=== PATIENT | female | born 1930 | race Caucasian/White ===

== ENCOUNTER → 2017-04-06 | Outpatient (CLI) | payer MEDICARE, OTHER ==
--- NOTE | 2017-04-06 15:26 | REP ---
Chest two views HISTORY: Cough Comparison: 04/14/2015 The lungs are clear. The heart is normal in size. The pulmonary vasculature is normal in appearance. The bony structure is intact. The patient is status post sternotomy. IMPRESSION: No acute disease. Signed by Raheem Hamilton MD 04/06/2017 03:17 P
== END ==
LOC: M WUC 15:00
PROVIDERS: ATTEND Internal Medicine
DX: R50.9 Fever, unspecified (principal); R05 Cough; R06.2 Wheezing

== ENCOUNTER → 2017-05-04 | Outpatient (CLI) | payer MEDICARE, OTHER ==
--- NOTE | 2017-05-04 12:39 | REP ---
PA and lateral chest: Comparison is 04/06/2017. The lung larson are clear. The cardiac size is normal The grace, mediastinum, and bony thorax are unremarkable. There are sternotomy wires and surgical clips in the left axilla. These are unchanged. Impression: Negative PA and lateral chest. No interval change. Signed by Duc Grant MD 05/04/2017 12:30 P
== END ==
LOC: M WUC 11:31
PROVIDERS: ATTEND Internal Medicine
DX: R05 Cough (principal)

== ENCOUNTER → 2017-05-27 | Outpatient (REF) | payer MEDICARE, OTHER | LOC: M LAB REF 13:17 | PROVIDERS: ATTEND Nurse Practitioner Adult Health | DX: R05 Cough (principal); R06.02 Shortness of breath ==

== ENCOUNTER 2017-06-03 06:09 | Emergency (ER) | payer MEDICARE, OTHER ==
[~2017-06-03] VITALS: Ht 157.5 cm; Wt 77.3 kg
[2017-06-03] MEDS ORDERED: ATOR1TAB21 PO (06:20)
[2017-06-03] MEDS ORDERED: VALS1TAB46 PO (06:20)
[2017-06-03] MEDS ORDERED: FURO40TA2 PO (06:20)
[2017-06-03] MEDS ORDERED: OMEP20CA3 PO (06:20)
[2017-06-03] MEDS ORDERED: MULT1TAB18 PO (06:20)
[2017-06-03] MEDS ORDERED: POTA10CA PO (06:20)
[2017-06-03 08:16] VITALS: BP 203/83
--- NOTE | 2017-06-03 08:19 | REP ---
Clinical: Cough . Comparison: 05/04/2017 . Technique: PA and lateral. Findings: The mediastinum and cardiac silhouette are normal. 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 The lung larson are clear and without acute consolidation, effusion, or pneumothorax. The skeletal structures are intact and normal. Impression: 1. No acute cardiopulmonary process. Signed by Guero Gr MD 06/03/2017 08:10 A
== END 2017-06-03 08:21 | disposition home or self-care (01) ==
LOC: M ED 06:09
DX: R60.0 Localized edema (principal); G56.02 Carpal tunnel syndrome, left upper limb; I10 Essential (primary) hypertension; K21.9 Gastro-esophageal reflux disease without esophagitis; Z85.3 Personal history of malignant neoplasm of breast; Z79.899 Other long term (current) drug therapy; Z88.0 Allergy status to penicillin; Z88.2 Allergy status to sulfonamides; Z88.5 Allergy status to narcotic agent; Z88.8 Allergy status to other drugs, medicaments and biological substances

== ENCOUNTER → 2017-11-02 | Outpatient (REF) | payer MEDICARE, OTHER ==
[2017-11-03 18:51] LABS: URIC ACID 6.7 MG/DL (2.6-6.0)
== END ==
LOC: M LAB REF 17:40
DX: M10.9 Gout, unspecified (principal)
CPT/HCPCS: 84550

== ENCOUNTER 2018-03-11 12:17 | Emergency (ER) | payer MEDICARE, OTHER ==
[2018-03-11 13:42] LABS: BASO % 0.3 % (0.0-1.0); EOS # 0.2 10^3/uL (0.0-0.50); EOS % 1.8 % (0.0-3.0); HEMATOCRIT 37.4 % (36.0-47.0); HEMOGLOBIN 12.8 g/dl (12.0-15.5); IMMATURE GRANULOCYTE % 0.3 % (0-3.0); LYMPH # 1.8 10^3/uL (1.5-4.5); LYMPH % 21.1 % (24.0-44.0); MEAN CORPUSCULAR HEMOGLOBIN 30.3 pg (27.0-33.0); MEAN CORPUSCULAR HGB CONC 34.2 g/dl (32.0-36.5); MEAN CORPUSCULAR VOLUME 88.4 fl (80.0-96.0); MONO # 0.7 10^3/uL (0.0-0.8); MONO % 8.4 % (0.0-5.0); NEUTROPHILS # 5.9 10^3/uL (1.8-7.7); NEUTROPHILS % 68.1 % (36.0-66.0); PLATELET COUNT, AUTOMATED 270 10^3/uL (150-450); RED BLOOD COUNT 4.23 10^6/uL (4.00-5.40); RED CELL DISTRIBUTION WIDTH 14.9 % (11.5-14.5); WHITE BLOOD COUNT 8.7 10^3/uL (4.0-10.0)
[2018-03-11 13:45] LABS: VENOUS HCO3 24.9 MEQ/L (23.0-27.0); VENOUS O2 SATURATION 93.5 % (60.0-80.0); VENOUS PARTIAL PRESSURE CO2 41.6 mmHg (38.0-50.0); VENOUS PARTIAL PRESSURE O2 67.2 mmHg (30.0-50.0); VENOUS PH 7.395 UNITS (7.330-7.430); VENOUS STANDARD HCO3 24.4 MEQ/L; VENOUS TOTAL CO2 26.2 MEQ/L (24.0-28.0)
[2018-03-11] MEDS: FUROSEMIDE 40 MG/4 ML VIAL (J1940) IV (13:46)
[2018-03-11 13:54] LABS: INR 0.93; PROTHROMBIN TIME 12.6 SECONDS (12.1-14.4)
[2018-03-11 14:14] LABS: ALBUMIN 3.6 GM/DL (3.2-5.2); ALKALINE PHOSPHATASE 125 U/L (45-117); ALT/SGPT 16 U/L (12-78); ANION GAP 9 MEQ/L (8-16); AST/SGOT 16 U/L (7-37); BILIRUBIN,DIRECT 0.1 MG/DL (0.0-0.2); BILIRUBIN,TOTAL 0.5 MG/DL (0.2-1.0); BLOOD UREA NITROGEN 34 MG/DL (7-18); CALCIUM LEVEL 8.9 MG/DL (8.8-10.2); CARBON DIOXIDE LEVEL 25 MEQ/L (21-32); CHLORIDE LEVEL 104 MEQ/L (98-107); CK-MB VALUE MASS 1.7 NG/ML (<3.6); CPK CREATINE PHOSPHOKINASE 74 U/L (26-192); CREATININE FOR GFR 1.39 MG/DL (0.55-1.30); GLOMERULAR FILTRATION RATE 38.3 (>32); GLUCOSE, FASTING 115 MG/DL (70-100); MB/CK RELATIVE INDEX 2.29 (< OR =4); NT-PRO BNP 370 PG/ML (<450); POTASSIUM SERUM 4.4 MEQ/L (3.5-5.1); SODIUM LEVEL 138 MEQ/L (136-145); TOTAL PROTEIN 7.6 GM/DL (6.4-8.2); TROPONIN I < 0.02 NG/ML (< 0.10)
[2018-03-11] MEDS ORDERED: ISOVUE-370 76% 100ML VIAL (Q9967) As Ordered (14:29)
== END 2018-03-11 17:45 | disposition home or self-care (01) ==
LOC: M ED 12:17
DX: J01.90 Acute sinusitis, unspecified (principal); R60.0 Localized edema; I10 Essential (primary) hypertension; I25.10 Atherosclerotic heart disease of native coronary artery without angina pectoris; Z95.1 Presence of aortocoronary bypass graft; Z82.49 Family history of ischemic heart disease and other diseases of the circulatory system; Z88.0 Allergy status to penicillin; Z88.2 Allergy status to sulfonamides; Z88.5 Allergy status to narcotic agent; Z88.8 Allergy status to other drugs, medicaments and biological substances; Z87.891 Personal history of nicotine dependence
CPT/HCPCS: Q9967

== ENCOUNTER → 2018-03-26 | Outpatient (REF) | payer MEDICARE, OTHER | LOC: M LAB REF 12:54 | DX: R05 Cough (principal) | CPT/HCPCS: 87633 ==

== ENCOUNTER → 2018-05-12 | Outpatient (CLI) | payer MEDICARE, OTHER ==
[2018-05-12 11:11] LABS: BASO % 0.4 % (0.0-1.0); EOS # 0.1 10^3/uL (0.0-0.50); EOS % 1.3 % (0.0-3.0); HEMOGLOBIN 11.9 g/dl (12.0-15.5); IMMATURE GRANULOCYTE % 0.2 % (0-3.0); LYMPH # 1.6 10^3/uL (1.5-4.5); LYMPH % 17.6 % (24.0-44.0); MEAN CORPUSCULAR HGB CONC 32.2 g/dl (32.0-36.5); MEAN CORPUSCULAR VOLUME 93.2 fl (80.0-96.0); MONO # 0.7 10^3/uL (0.0-0.8); NEUTROPHILS # 6.7 10^3/uL (1.8-7.7); NEUTROPHILS % 72.5 % (36.0-66.0); PLATELET COUNT, AUTOMATED 281 10^3/uL (150-450); RED BLOOD COUNT 3.97 10^6/uL (4.00-5.40); RED CELL DISTRIBUTION WIDTH 14.1 % (11.5-14.5); WHITE BLOOD COUNT 9.3 10^3/uL (4.0-10.0)
[2018-05-12 11:21] LABS: ALBUMIN 3.8 GM/DL (3.2-5.2); ALBUMIN/GLOBULIN RATIO 1.12 (1.00-1.93); ALKALINE PHOSPHATASE 143 U/L (45-117); ALT/SGPT 18 U/L (12-78); ANION GAP 7 MEQ/L (8-16); AST/SGOT 13 U/L (7-37); BILIRUBIN,TOTAL 0.3 MG/DL (0.2-1.0); BLOOD UREA NITROGEN 28 MG/DL (7-18); CALCIUM LEVEL 9.3 MG/DL (8.8-10.2); CARBON DIOXIDE LEVEL 28 MEQ/L (21-32); CHLORIDE LEVEL 105 MEQ/L (98-107); CREATININE FOR GFR 1.22 MG/DL (0.55-1.30); GLOMERULAR FILTRATION RATE 44.5 (>32); GLUCOSE, FASTING 100 MG/DL (70-100); MAGNESIUM LEVEL 2.1 MG/DL (1.8-2.4); NT-PRO BNP 492 PG/ML (<450); PHOSPHORUS LEVEL 3.2 MG/DL (2.5-4.9); SODIUM LEVEL 140 MEQ/L (136-145); TOTAL PROTEIN 7.2 GM/DL (6.4-8.2)
== END ==
LOC: M RAD 10:21
DX: J44.9 Chronic obstructive pulmonary disease, unspecified (principal); R60.0 Localized edema; M25.462 Effusion, left knee; M71.22 Synovial cyst of popliteal space [Baker], left knee
CPT/HCPCS: 93970

== ENCOUNTER → 2018-05-14 | Outpatient (REF) | payer MEDICARE, OTHER ==
[2018-05-14 16:51] LABS: URIC ACID 6.6 MG/DL (2.6-6.0)
== END ==
LOC: M LAB REF 16:32
DX: E79.0 Hyperuricemia without signs of inflammatory arthritis and tophaceous disease (principal)
CPT/HCPCS: 84550

== ENCOUNTER → 2018-05-28 | Outpatient (CLI) | payer MEDICARE, OTHER | LOC: M CARPUL 09:34 | DX: R60.0 Localized edema (principal) | CPT/HCPCS: 93306 ==

== ENCOUNTER → 2018-07-28 | Outpatient (REF) | payer MEDICARE, OTHER ==
[~2018-07-28] MED LIST: ATOR1TAB21 PO; CETI10TA PO; FURO40TA2 PO; KLOR10TA76 PO; MULT1TAB18 PO; OMEP20CA3 PO; VALS1TAB46 PO; ZITHTAB PO
[2018-07-28 19:43] LABS: HEMATOCRIT 31.3 % (36.0-47.0); HEMOGLOBIN 10.5 g/dl (12.0-15.5); MEAN CORPUSCULAR HEMOGLOBIN 31.1 pg (27.0-33.0); MEAN CORPUSCULAR HGB CONC 33.5 g/dl (32.0-36.5); MEAN CORPUSCULAR VOLUME 92.6 fl (80.0-96.0); PLATELET COUNT, AUTOMATED 315 10^3/uL (150-450); RED BLOOD COUNT 3.38 10^6/uL (4.00-5.40); WHITE BLOOD COUNT 7.5 10^3/uL (4.0-10.0)
[2018-07-28 19:47] LABS: CALCIUM LEVEL 8.1 MG/DL (8.8-10.2); CREATININE FOR GFR 1.5 MG/DL (0.55-1.30); GLOMERULAR FILTRATION RATE 35.1 (>32); POTASSIUM SERUM 4.3 MEQ/L (3.5-5.1)
== END ==
LOC: M LABDRWAD 19:15
PROVIDERS: ATTEND Internal Medicine Cardiovascular Disease
DX: Z00.00 Encounter for general adult medical examination without abnormal findings (principal)

== ENCOUNTER 2018-09-08 15:09 | Outpatient (RCR) | payer MEDICARE, OTHER ==
--- NOTE | 2018-08-18 14:03 | CARECAPL ---
Assessment Account #s: Initial Assessment General Diagnoses: Stent Date of event: Aug 02, 2018 Allergies: Coded Allergies: Prednisone (Verified Allergy, Severe, ANXIETY/ITCHING, 06/03/17) Penicillins (Verified Allergy, Intermediate, RASH/FEVER, 10/19/12) Penicillins Cross Reactors (Verified Allergy, Intermediate, RASH/FEVER, 10/19/12) Sulfa Drugs (Verified Allergy, Intermediate, RASH/FEVER/ITCHING, 10/19/12) Sulfa Drugs Cross Reactors (Verified Allergy, Intermediate, RASH/FEVER/ITCHING, 10/19/12) Cortisone (Verified Allergy, Unknown, 10/19/12) Ibuprofen (Verified Allergy, Unknown, 10/19/12) Oxycodone (Verified Allergy, Unknown, 10/19/12) Date Entered Program: Aug 18, 2018 Risk strat for cardiac event: Low Exercise Date: Aug 18, 2018 Assessment: Initial Assessment Exercise Prescription Plan educate and increase endurance through exercise Modalities initiated: Treadmill (mets 1.77 RPE 5), Cardio-Strider (will add), Nustep (mets 2.4 RPE 3), Arm Aerometer (mets 2.4 RPE 2), Dumbells (will add), Recumbent Bike (will add) Frequency: 3 Duration (Minutes) 30-60 minutes total exercise a day. 15-20 work intervals in minutes. prn rest intervals in minutes. Functional Capacity Goal Sustained Metabolic Equivalent of a task (MET) goal of 3.0-3.75 for 15-20 minutes. Intensity: 3-Moderate Progression (METS) Increase by: 0.5 METS every: 3-5 sessions Angina with ex: No Target Heart Rate rest + 35-40 per beta manju therapy Resistance Training: Yes Weight (pounds): 1 Reps: 8-12 Hypertension: Yes Hypertension controlled with: Medication Resting 133/60 Peak Exercise BP 180/80 Meds lopressor Medications Scheduled (Multi Vitamin), 1 TAB PO DAILY, (Reported) Albuterol Sulfate (Proventil Hfa), 2 PUFF INH Q4H, (Reported) Apixaban Base (Eliquis), 2.5 MG PO BID, (Reported) Atorvastatin Calcium (Atorvastatin Calcium), 20 MG PO DAILY, (Reported) Budesonide/Formoterol (Symbicort 160-4.5 Mcg/Act), 2 PUFF INH BID, (Reported) Clopidogrel Bisulfate (Plavix), 75 MG PO DAILY, (Reported) Metoprolol Tartrate (Metoprolol Tartrate), 25 MG PO BID, (Reported) Nitroglycerin (Nitro-Dur), 0.4 MG TD DAILY, (Reported) Omeprazole (Omeprazole), 20 MG PO DAILY, (Reported) Potassium Chloride (Klor-Con M10), 10 MEQ PO DAILY, (Reported) Tiotropium [place] Monohydrate (Spiriva Handihaler), 1 INHALATION INH DAILY, (Reported) Torsemide (Torsemide), 20 MG PO DAILY, (Reported) Valsartan (Valsartan), 80 MG PO DAILY, (Reported) Miscellaneous Medications (Tab-A-Rl), 1 TAB PO, (Reported) Discontinued Medications Albuterol Sulfate (Albuterol Sulfate), 1 VIAL NEB Q4HP PRN for wheezing, (Reported) Discontinued Reason: Pt states not taking Azithromycin (Zithromax Z-Mian), 250 MG PO ASDIRECTED Discontinued Reason: Pt states not taking Cetirizine HCl (Cetirizine HCl), 1 TAB PO DAILY Discontinued Reason: Pt states not taking Furosemide (Furosemide), 40 MG PO DAILY, (Reported) Discontinued Reason: Pt states not taking Intervention Education: Self pulse, Ex safety, S/S to report, Low NA diet, BP medication, RPE Scale, Equipment orientation, warm up/cool down, Understand BP, Physical Active Target Goals Individual exercise Rx (1) BP 140/90 or 130/80 if DM or CKD (1) Aerobic active 30+min 5 days per week (1) Nutrition Date: Aug 18, 2018 Assessment: Initial Assessment Lipid- med/supplement lipitor Diabetes Diabetes: Yes Fasting Blood Sugar: 103 Diabetes medication none diet controlled Monitor Blood Sugar at home: Yes Frequency bid Weight Management Weight (lbs): 180.2 Height (inches): 60 Waist Circumference (Inches): 42 BMI: 35.15 Weight goal: 155 Special Diet: low salt, low-fat Vitamin/Supplements: Multivitamin Alcohol: none Diet Access Tool: Rate your plate Score: 51 Referral to Diabetes education: No Referral to lipid clinic: No Referral to weight mangement p: No Education S&S hypo/hyper glycemia, Relate Diabetes in CAD, Eating Healthy Target goal LDL-C<100 if triglycerides are >200 Non-HDL-C should be <130 (1) LDL-C<70 for high risk patients (4) HbA1c<7% (1) BMI<25 Waist cir<40in M/<35in F (1) Education Date: Aug 18, 2018 Assessment: Initial Assessment Learning Barriers: cognitive (age related ) Knowledge Test Score: 3 Family Support: Yes Tobacco use: No Quit: >6 months Tobacco Use Date quit: Aug 16, 1959 Smokeless tobacco: No Intervention Education: tobacco triggers, CAD, Risk factors, med compliance, cardiac A&P, Angina S/S, Sexuality Target Goals Complete cessation of tobacco use (1). Psychosocial Date: Aug 18, 2018 Assessment: Initial Assessment Psych Test (Initial/Discharge) Tool Used: CESD Score: 2 Intervention Physician Consult: No Psychotropic medication none Education Education: Coping Techniques, S/S depression, Relaxation Techniques Target Goal Assess presence or absence of depression using a valid screening tool (1). Maximize coping skills (2). Positive support system (2). Patient/Program Goal Preventative Medication: Yes Clopidogrel, Yes Beta blockade, Yes Statin/OTR lipid Lowering, Yes Other (eliquis) Fall Risk Assess: No Assisstive Device: cane Provider Assessment Session Number: 1 Provider Assessment: Proceed with rehab Amy Pina RN Aug 18, 2018 14:03
[~2018-09-08 15:09] MED LIST changes: +ALBU17IN2 INH; +ALBU83IN NEB; +ELIQ2.5T PO; +METO37.5 PO; +NITR0.4D10 TD; +PLAV1TAB2 PO; +SYMB16INH INH; +TAB-TAB PO; +TIOT18INH INH; +TORS20TA2 PO
== END 2018-09-09 ==
LOC: M CR 15:09
PROVIDERS: ATTEND Internal Medicine
DX: Z98.61 Coronary angioplasty status (principal)

== ENCOUNTER 2018-10-06 13:23 | Outpatient (RCR) | payer MEDICARE, OTHER ==
--- NOTE | 2018-09-10 14:21 | CARECAPL ---
Assessment Account #s: Re-Assessment I General Diagnoses: Stent Date of event: Aug 02, 2018 Physician: Demetrio Lanier Allergies: Coded Allergies: Prednisone (Verified Allergy, Severe, ANXIETY/ITCHING, 06/03/17) Penicillins (Verified Allergy, Intermediate, RASH/FEVER, 10/19/12) Penicillins Cross Reactors (Verified Allergy, Intermediate, RASH/FEVER, 10/19/12) Sulfa Drugs (Verified Allergy, Intermediate, RASH/FEVER/ITCHING, 10/19/12) Sulfa Drugs Cross Reactors (Verified Allergy, Intermediate, RASH/FEVER/ITCHING, 10/19/12) Cortisone (Verified Allergy, Unknown, 10/19/12) Ibuprofen (Verified Allergy, Unknown, 10/19/12) Oxycodone (Verified Allergy, Unknown, 10/19/12) Date Entered Program: Aug 02, 2018 Risk strat for cardiac event: Low Exercise Date: Sep 10, 2018 Assessment: Re-Assessment I Exercise Prescription Modalities initiated: Cardio-Strider, Nustep, Arm Aerometer, Dumbells, Recumbent Bike Frequency: 2 Duration (Minutes) minutes total exercise a day. work intervals in minutes. rest intervals in minutes. Functional Capacity Goal Sustained Metabolic Equivalent of a task (MET) goal of for minutes. Intensity: 3-Moderate Progression (METS) Increase by: METS every: sessions Angina with ex: No Resistance Training: Yes Weight (pounds): 2 Reps: 6-8 Medications Scheduled (Multi Vitamin), 1 TAB PO DAILY, (Reported) Albuterol Sulfate (Proventil Hfa), 2 PUFF INH Q4H, (Reported) Apixaban Base (Eliquis), 2.5 MG PO BID, (Reported) Atorvastatin Calcium (Atorvastatin Calcium), 20 MG PO DAILY, (Reported) Budesonide/Formoterol (Symbicort 160-4.5 Mcg/Act), 2 PUFF INH BID, (Reported) Clopidogrel Bisulfate (Plavix), 75 MG PO DAILY, (Reported) Metoprolol Tartrate (Metoprolol Tartrate), 25 MG PO BID, (Reported) Nitroglycerin (Nitro-Dur), 0.4 MG TD DAILY, (Reported) Omeprazole (Omeprazole), 20 MG PO DAILY, (Reported) Potassium Chloride (Klor-Con M10), 10 MEQ PO DAILY, (Reported) Tiotropium [place] Monohydrate (Spiriva Handihaler), 1 INHALATION INH DAILY, (Reported) Torsemide (Torsemide), 20 MG PO DAILY, (Reported) Valsartan (Valsartan), 80 MG PO DAILY, (Reported) Miscellaneous Medications (Tab-A-Rl), 1 TAB PO, (Reported) Current BP 142/78 Med Change: No Target Goals Individual exercise Rx (1) BP 140/90 or 130/80 if DM or CKD (1) Aerobic active 30+min 5 days per week (1) Nutrition Date: Sep 10, 2018 Assessment: Re-Assessment I Current Weight (pounds): 178 Intervention Drill Bit Sharpener Consult: Yes Nurse/patient discussion: Yes Diet Class: Yes Target goal LDL-C<100 if triglycerides are >200 Non-HDL-C should be <130 (1) LDL-C<70 for high risk patients (4) HbA1c<7% (1) BMI<25 Waist cir<40in M/<35in F (1) Education Date: Sep 10, 2018 Assessment: Re-Assessment I Family Support: Yes Intervention Education class schedule given: Yes Education: CAD, Risk factors, med compliance Target Goals Complete cessation of tobacco use (1). Psychosocial Date: Sep 10, 2018 Assessment: Re-Assessment I Intervention Physician Consult: No Physician Referral: No Med Change: No Stress Management Class: Yes Uses Stress Management Skills: Yes Education Education: Coping Techniques, S/S depression, Relaxation Techniques Target Goal Assess presence or absence of depression using a valid screening tool (1). Maximize coping skills (2). Positive support system (2). Provider Assessment Provider Assessment: No changes Ingrid Licona RN Sep 10, 2018 14:21
--- NOTE | 2018-10-04 09:38 | CARECAPL ---
Assessment Account #s: Re-Assessment II General Diagnoses: Stent Date of event: Aug 02, 2018 Physician: Demetrio Lanier Allergies: Coded Allergies: Prednisone (Verified Allergy, Severe, ANXIETY/ITCHING, 06/03/17) Penicillins (Verified Allergy, Intermediate, RASH/FEVER, 10/19/12) Penicillins Cross Reactors (Verified Allergy, Intermediate, RASH/FEVER, 10/19/12) Sulfa Drugs (Verified Allergy, Intermediate, RASH/FEVER/ITCHING, 10/19/12) Sulfa Drugs Cross Reactors (Verified Allergy, Intermediate, RASH/FEVER/ITCHING, 10/19/12) Cortisone (Verified Allergy, Unknown, 10/19/12) Ibuprofen (Verified Allergy, Unknown, 10/19/12) Oxycodone (Verified Allergy, Unknown, 10/19/12) Date Entered Program: Aug 02, 2018 Risk strat for cardiac event: Low Exercise Date: Oct 04, 2018 Assessment: Re-Assessment II Exercise Prescription Modalities initiated: Cardio-Strider, Nustep, Arm Aerometer, Dumbells Frequency: 2 Duration (Minutes) minutes total exercise a day. work intervals in minutes. rest intervals in minutes. Functional Capacity Goal Sustained Metabolic Equivalent of a task (MET) goal of for minutes. Intensity: 3-Moderate Progression (METS) Increase by: METS every: sessions Angina with ex: No Resistance Training: Yes Weight (pounds): 3 Reps: 6-8 Medications Scheduled (Multi Vitamin), 1 TAB PO DAILY, (Reported) Albuterol Sulfate (Proventil Hfa), 2 PUFF INH Q4H, (Reported) Apixaban Base (Eliquis), 2.5 MG PO BID, (Reported) Atorvastatin Calcium (Atorvastatin Calcium), 20 MG PO DAILY, (Reported) Budesonide/Formoterol (Symbicort 160-4.5 Mcg/Act), 2 PUFF INH BID, (Reported) Clopidogrel Bisulfate (Plavix), 75 MG PO DAILY, (Reported) Metoprolol Tartrate (Metoprolol Tartrate), 25 MG PO BID, (Reported) Nitroglycerin (Nitro-Dur), 0.4 MG TD DAILY, (Reported) Omeprazole (Omeprazole), 20 MG PO DAILY, (Reported) Potassium Chloride (Klor-Con M10), 10 MEQ PO DAILY, (Reported) Tiotropium [place] Monohydrate (Spiriva Handihaler), 1 INHALATION INH DAILY, (Reported) Torsemide (Torsemide), 20 MG PO DAILY, (Reported) Valsartan (Valsartan), 80 MG PO DAILY, (Reported) Miscellaneous Medications (Tab-A-Rl), 1 TAB PO, (Reported) Current BP 158/80 Med Change: No Target Goals Individual exercise Rx (1) BP 140/90 or 130/80 if DM or CKD (1) Aerobic active 30+min 5 days per week (1) Nutrition Date: Oct 04, 2018 Assessment: Re-Assessment II Med Change: No Blood sugar in range: No Current Weight (pounds): 177 Intervention Hydrometeorologist Consult: Yes Nurse/patient discussion: Yes Diet Class: Yes Education Eating Healthy Target goal LDL-C<100 if triglycerides are >200 Non-HDL-C should be <130 (1) LDL-C<70 for high risk patients (4) HbA1c<7% (1) BMI<25 Waist cir<40in M/<35in F (1) Education Date: Oct 04, 2018 Assessment: Re-Assessment II Intervention Attended education classes: Yes Education: CAD, Risk factors, med compliance, cardiac A&P, Angina S/S, Sexuality Target Goals Complete cessation of tobacco use (1). Psychosocial Date: Oct 04, 2018 Assessment: Re-Assessment II Stress Management Class: Yes Uses Stress Management Skills: Yes Education Education: Coping Techniques, S/S depression, Relaxation Techniques Education Goals Met: Yes Target Goal Assess presence or absence of depression using a valid screening tool (1). Maximize coping skills (2). Positive support system (2). Provider Assessment Session Number: 6 Provider Assessment: No changes Ingrid Licona RN Oct 04, 2018 09:04
== END 2018-10-10 ==
LOC: M CR 13:23
PROVIDERS: ATTEND Internal Medicine
DX: Z98.61 Coronary angioplasty status (principal)

== ENCOUNTER → 2019-02-22 | Outpatient (REF) | payer MEDICARE, OTHER ==
[~2019-02-22] MED LIST changes: -OMEP20CA3 PO; +OMEP20CA4 PO; -VALS1TAB46 PO; +VALS1TAB66 PO
== END ==
LOC: M LAB REF 12:57
PROVIDERS: ATTEND Nurse Practitioner Adult Health
DX: R60.0 Localized edema (principal); I50.9 Heart failure, unspecified

== ENCOUNTER → 2019-10-31 | Outpatient (REF) | payer MEDICARE, OTHER ==
[~2019-10-31] MED LIST changes: -ALBU17IN2 INH; +OMEP1CAP73 PO; -OMEP20CA4 PO; +PROV108A INH
[2019-10-31 19:27] LABS: PERCENT SATURATION 15.8 % (13.2-45.0)
== END ==
LOC: M LAB REF 18:08
PROVIDERS: ATTEND Internal Medicine
DX: I50.33 Acute on chronic diastolic (congestive) heart failure (principal)

== ENCOUNTER → 2020-01-03 | Outpatient (REF) | payer MEDICARE, OTHER ==
[~2020-01-03] MED LIST changes: -TAB-TAB PO; +TAB-TAB2 PO
[2020-01-03 18:48] LABS: PERCENT SATURATION 18.7 % (13.2-45.0)
== END ==
LOC: M LAB REF 16:32
PROVIDERS: ATTEND Internal Medicine Nephrology
DX: D50.9 Iron deficiency anemia, unspecified (principal)

== ENCOUNTER → 2020-02-09 | Outpatient (CLI) | payer MEDICARE, OTHER ==
--- NOTE | 2020-03-30 10:52 | REP ---
CT OF THE ABDOMEN AND PELVIS WITHOUT CONTRAST: HISTORY: Stage III chronic renal disease. TECHNIQUE: Axial noncontrast images from the lung bases to the pubic symphysis with coronal and sagittal reformations. FINDINGS: The liver, spleen, pancreas and bilateral adrenal glands are normal for noncontrast evaluation. Cholelithiasis noted without acute cholecystitis. The kidneys demonstrate chronic cortical atrophy and increased central sinus fat with minimal symmetric chronic perinephric stranding. No hydronephrosis or nephrolithiasis appreciated. No obvious renal cyst or mass identified. The enteric system demonstrates a large hiatal hernia. There is no evidence for bowel obstruction or acute inflammatory process. Colonic and sigmoid diverticulosis noted without acute diverticulitis. Normal terminal ileum and appendix are identified. The pelvis demonstrates normal bladder and evidence for prior hysterectomy. No pelvic fluid or ascites. No free air. No intraperitoneal or retroperitoneal adenopathy. Atherosclerotic changes to the aorta and vasculature noted without aneurysm. Musculoskeletal structures demonstrate age related osteopenia, degenerative changes and scoliosis. Lung bases are clear. IMPRESSION: 1. Chronic renal changes consistent with the given history of stage III chronic renal disease. No associated acute urinary tract findings appreciated. 2. Cholelithiasis. 3. Diverticulosis. MTDD
== END ==
LOC: M RAD 13:30
PROVIDERS: ATTEND Internal Medicine Nephrology
DX: N18.3 Chronic kidney disease, stage 3 (moderate) (principal); N20.0 Calculus of kidney

== ENCOUNTER → 2020-08-28 | Outpatient (REF) | payer MEDICARE, OTHER | LOC: M LAB REF 16:11 | PROVIDERS: ATTEND Internal Medicine | DX: N18.4 Chronic kidney disease, stage 4 (severe) (principal) ==

== ENCOUNTER → 2020-10-23 | Outpatient (REF) | payer MEDICARE, OTHER | LOC: M LAB REF 16:47 | PROVIDERS: ATTEND Nurse Practitioner Family | DX: R06.00 Dyspnea, unspecified (principal) ==

== ENCOUNTER → 2020-10-30 | Outpatient (REF) | payer MEDICARE, OTHER | LOC: M LAB REF 16:45 | PROVIDERS: ATTEND Internal Medicine | DX: E79.0 Hyperuricemia without signs of inflammatory arthritis and tophaceous disease (principal) ==

== ENCOUNTER → 2020-11-02 | Outpatient (REF) | payer MEDICARE, OTHER | LOC: M LAB REF 17:13 | PROVIDERS: ATTEND Nurse Practitioner Family | DX: I50.22 Chronic systolic (congestive) heart failure (principal) ==

== ENCOUNTER → 2021-02-12 | Outpatient (REF) | payer MEDICARE, OTHER ==
[~2021-02-12] MED LIST changes: +ALBU83IN INH; +ALLO300T2 PO; +APAP500T10 PO; +CALC1CAP31 PO; +HYDR-3910 PO; +ISOS1TAB35 PO; -KLOR10TA76 PO; +METO1TAB87 PO; +POTA-136 PO; +SPIR-10 PO
== END ==
LOC: M LAB REF 17:09
PROVIDERS: ATTEND Nurse Practitioner Family
DX: E83.42 Hypomagnesemia (principal)

== ENCOUNTER 2021-09-03 13:30 | Inpatient (IN) | payer MEDICARE, OTHER ==
[~2021-09-03] VITALS: Ht 152.4 cm; Wt 80.6 kg
[~2021-09-03 13:30] MED LIST changes: -ALBU83IN INH; -ALLO300T2 PO; -APAP500T10 PO; -CALC1CAP31 PO; -HYDR-3910 PO; -ISOS1TAB35 PO; -METO1TAB87 PO; -SPIR-10 PO
[2021-09-03] MEDS ORDERED: MORPHINE 4 MG/ML 1ML VIAL/SYRINGE (J2270) IV ONE (14:00)
[2021-09-03 15:11] LABS: BASO % 0.2 % (0.0-1.0); EOS % 0.1 % (0.0-3.0); HEMATOCRIT 29.1 % (36.0-47.0); HEMOGLOBIN 9.5 g/dl (12.0-15.5); LYMPH # 0.9 10^3/uL (1.5-5.0); LYMPH % 4.8 % (24.0-44.0); MEAN CORPUSCULAR HEMOGLOBIN 29.1 pg (27.0-33.0); MEAN CORPUSCULAR HGB CONC 32.6 g/dl (32.0-36.5); MEAN CORPUSCULAR VOLUME 89.3 fl (80.0-96.0); MONO # 0.9 10^3/uL (0.0-0.8); MONO % 4.9 % (2.0-8.0); NEUTROPHILS # 17.2 10^3/uL (1.5-8.5); NEUTROPHILS % 89.4 % (36.0-66.0); PLATELET COUNT, AUTOMATED 390 10^3/uL (150-450); RED BLOOD COUNT 3.26 10^6/uL (4.00-5.40); WHITE BLOOD COUNT 19.2 10^3/uL (4.0-10.0)
[2021-09-03 15:25] LABS: INR 1.4; PARTIAL THROMBOPLASTIN TIME 43.4 SECONDS (25.9-37.0); PROTHROMBIN TIME 17.6 SECONDS (12.7-14.5)
[2021-09-03 15:33] LABS: CK-MB VALUE MASS 4.2 NG/ML (<3.6); MB/CK RELATIVE INDEX 0.86 (< OR =4)
[2021-09-03 15:43] LABS: BILIRUBIN,DIRECT 0.2 MG/DL (0.0-0.2); BILIRUBIN,TOTAL 0.5 MG/DL (0.2-1.0); CALCIUM LEVEL 8.9 MG/DL (8.8-10.2); CREATININE FOR GFR 2.14 MG/DL (0.55-1.30); FREE T4 1.24 NG/DL (0.76-1.46); GLOMERULAR FILTRATION RATE 23.1 (>32); POTASSIUM SERUM 4.2 MEQ/L (3.5-5.1); THYROID STIMULATING HORMONE 1.45 uIU/ML (0.358-3.740); TOTAL PROTEIN 6.4 GM/DL (6.4-8.2)
[2021-09-03] MEDS ORDERED: ISOS1TAB35 PO (17:27)
[2021-09-03] MEDS ORDERED: METO1TAB87 PO (17:27)
[2021-09-03] MEDS ORDERED: HYDR-3910 PO (17:27)
[2021-09-03] MEDS ORDERED: APAP500T10 PO (17:27)
[2021-09-03] MEDS ORDERED: CALC1CAP31 PO (17:27)
[2021-09-03] MEDS ORDERED: ALBU83IN INH (17:27)
[2021-09-03] MEDS ORDERED: ALLO300T2 PO (17:27)
[2021-09-03] MEDS ORDERED: SPIR-10 PO (17:27)
[2021-09-03] MEDS ORDERED: HOME MED LIST COMPLETE! XX SCH (17:30)
[2021-09-03] MEDS ORDERED: ALBUTEROL SULFATE 2.5 MG/0.5 ML INH NEB SOLN INH PRN (18:10)
[2021-09-03] MEDS ORDERED: FUROSEMIDE 100MG/10ML VIAL (J1940) IV ONE (18:25)
[2021-09-03] MEDS: LevoFLOXacin IV 750 MG in IV 1 EA IV SCH (20:00)
[2021-09-03] MEDS: SYMBICORT 160/4.5MCG INHALER 6GM INH SCH (20:10)
[2021-09-03 21:59] VITALS: BP 140/71
[2021-09-03] MEDS: **hydrALAZINE HCL** 25 MG TAB PO SCH (23:05)
[2021-09-03] MEDS: APIXABAN 2.5 MG TAB (ELIQUIS) PO SCH (23:05)
[2021-09-03] MEDS: METOPROLOL TART 12.5 MG PER 1/2 TAB PO SCH (23:06)
[2021-09-03] MEDS: ACETAMINOPHEN TAB 650MG DOSE (2X325MG) PO PRN (23:07)
[2021-09-03] MEDS ORDERED: GLUCAGON INJ 1MG VIAL SC PRN (23:30)
[2021-09-03] MEDS ORDERED: GLUCOSE 4GM CHEW TABLET PO PRN (23:30)
[2021-09-03] MEDS ORDERED: hydrOXYzine 25 MG TAB PO ONE (23:30)
[2021-09-03] MEDS ORDERED: DEXTROSE 50% 50 ML SYRINGE IV PRN (23:30)
[2021-09-03] MEDS: RAMELTEON 8 MG TAB (ROZEREM) PO PRN (23:54)
[2021-09-04] MEDS ORDERED: MORPHINE 4 MG/ML 1ML VIAL/SYRINGE (J2270) IV ONE (01:00)
[2021-09-04] MEDS ORDERED: MORPHINE 2 MG/ML 1ML VIAL (J2270) IV ONE (01:00)
[2021-09-04 06:00] VITALS: BP 144/75
[2021-09-04 06:57] LABS: HEMATOCRIT 26.9 % (36.0-47.0); HEMOGLOBIN 8.9 g/dl (12.0-15.5); MEAN CORPUSCULAR HEMOGLOBIN 29.6 pg (27.0-33.0); MEAN CORPUSCULAR HGB CONC 33.1 g/dl (32.0-36.5); MEAN CORPUSCULAR VOLUME 89.4 fl (80.0-96.0); PLATELET COUNT, AUTOMATED 326 10^3/uL (150-450); RED BLOOD COUNT 3.01 10^6/uL (4.00-5.40); WHITE BLOOD COUNT 15.7 10^3/uL (4.0-10.0)
[2021-09-04 07:30] LABS: ALBUMIN 2.5 GM/DL (3.2-5.2); BILIRUBIN,TOTAL 0.4 MG/DL (0.2-1.0); CREATININE FOR GFR 1.95 MG/DL (0.55-1.30); GLOMERULAR FILTRATION RATE 25.7 (>32); POTASSIUM SERUM 3.7 MEQ/L (3.5-5.1); TOTAL PROTEIN 6.4 GM/DL (6.4-8.2)
[2021-09-04] MEDS: SYMBICORT 160/4.5MCG INHALER 6GM INH SCH ×2 (07:54→20:00)
[2021-09-04 09:00] VITALS: BP 143/70
[2021-09-04] MEDS: CALCITRIOL 0.25 MCG CAP (S0169) PO SCH (09:00)
[2021-09-04] MEDS: allopurinoL 300 MG TAB PO SCH (09:00)
[2021-09-04] MEDS: CLOPIDOGREL 75 MG TAB PO SCH (09:00)
[2021-09-04] MEDS: APIXABAN 2.5 MG TAB (ELIQUIS) PO SCH ×2 (09:00→21:21)
[2021-09-04] MEDS: **hydrALAZINE HCL** 25 MG TAB PO SCH ×3 (09:00→21:21)
[2021-09-04] MEDS: POTASSIUM CHLORIDE 10MEQ SR TABLET PO SCH (09:00)
[2021-09-04] MEDS ORDERED: ISOSORBIDE MON. (IMDUR) 30 MG XR TAB PO SCH (09:00)
[2021-09-04] MEDS ORDERED: SPIRONOLACTONE 12.5MG PER 1/2 TABLET PO SCH (09:00)
[2021-09-04] MEDS: OMEPRAZOLE 20MG CAP PO SCH (10:03)
[2021-09-04] MEDS: METOPROLOL TART 12.5 MG PER 1/2 TAB PO SCH ×2 (10:03→21:21)
[2021-09-04] MEDS: ATORVASTATIN 20 MG TAB PO SCH (10:03)
[2021-09-04 11:11] LABS: HEMOGLOBIN A1c 7.3 %
[2021-09-04] MEDS ORDERED: MORPHINE 2 MG/ML 1ML VIAL (J2270) IV PRN (14:00)
[2021-09-04] MEDS ORDERED: traMADol 50 MG TAB PO PRN (14:00)
[2021-09-04 14:01] LABS: PERCENT SATURATION 6.7 % (13.2-45.0)
[2021-09-04] MEDS: ACETAMINOPHEN TAB 650MG DOSE (2X325MG) PO PRN (14:04)
[2021-09-04 14:08] LABS: PTH INTACT 114.1 PG/ML (18.5-88.0); TOTAL 25(OH) VITAMIN D 10.6 NG/ML (30.0-100.0)
[2021-09-04] MEDS: FUROSEMIDE injection 250 MG in D5W 225 ML IV SCH (15:24)
[2021-09-04] MEDS ORDERED: LIDOCAINE 1% MDV 20ML VIAL As Ordered ONE (15:40)
[2021-09-04] MEDS: aMILoride 5 MG TAB PO SCH (21:21)
[2021-09-04] MEDS: SODIUM CHLORIDE 0.9% INJ 10 ML SYR IV PRN (21:22)
[2021-09-04] MEDS: RAMELTEON 8 MG TAB (ROZEREM) PO PRN (21:22)
[2021-09-04] MEDS: MORPHINE 4 MG/ML 1ML VIAL/SYRINGE (J2270) IV PRN (21:22)
[2021-09-04 22:00] VITALS: BP 126/71
[2021-09-04 23:44] LABS: CREATININE,RANDOM URINE 17.8 MG/DL; TOTAL PROTEIN,RANDOM URINE 14.5 MG/DL (0.0-12.0)
[2021-09-05] VITALS (10 sets, daily range): BP systolic 103–138; BP diastolic 52–72
[2021-09-05] MEDS: MORPHINE 4 MG/ML 1ML VIAL/SYRINGE (J2270) IV PRN (03:28)
[2021-09-05] MEDS: SODIUM CHLORIDE 0.9% INJ 10 ML SYR IV PRN (03:29)
[2021-09-05] MEDS: SODIUM CHLORIDE 0.9% INJ 10 ML SYR IV SCH ×2 (04:17→17:11)
[2021-09-05 04:35] LABS: HEMATOCRIT 24.8 % (36.0-47.0); HEMOGLOBIN 8.1 g/dl (12.0-15.5); MEAN CORPUSCULAR HEMOGLOBIN 29.2 pg (27.0-33.0); MEAN CORPUSCULAR HGB CONC 32.7 g/dl (32.0-36.5); MEAN CORPUSCULAR VOLUME 89.5 fl (80.0-96.0); PLATELET COUNT, AUTOMATED 313 10^3/uL (150-450); RED BLOOD COUNT 2.77 10^6/uL (4.00-5.40); WHITE BLOOD COUNT 11.3 10^3/uL (4.0-10.0)
[2021-09-05] MEDS ORDERED: METOPROLOL TART 12.5 MG PER 1/2 TAB PO ONE (05:00)
[2021-09-05] MEDS ORDERED: MORPHINE 4 MG/ML 1ML VIAL/SYRINGE (J2270) IV ONE (05:00)
[2021-09-05 05:24] LABS: ALBUMIN 2.5 GM/DL (3.2-5.2); BILIRUBIN,TOTAL 0.4 MG/DL (0.2-1.0); CALCIUM LEVEL 8.2 MG/DL (8.8-10.2); CREATININE FOR GFR 1.96 MG/DL (0.55-1.30); GLOMERULAR FILTRATION RATE 25.6 (>32); PERCENT SATURATION 8.5 % (13.2-45.0); POTASSIUM SERUM 3.7 MEQ/L (3.5-5.1); TOTAL PROTEIN 5.8 GM/DL (6.4-8.2)
[2021-09-05] MEDS: METOPROLOL TART 12.5 MG PER 1/2 TAB PO SCH ×3 (06:00→17:36)
[2021-09-05] MEDS ORDERED: METOPROLOL 5 MG/5 ML VIAL IV ONE (06:00)
[2021-09-05] MEDS: FUROSEMIDE injection 250 MG in D5W 225 ML IV SCH ×2 (06:16→17:11)
[2021-09-05] MEDS ORDERED: diltiaZEM 125 MG in NS 100 ML IV SCH ×2 (07:00)
[2021-09-05] MEDS: SYMBICORT 160/4.5MCG INHALER 6GM INH SCH ×2 (08:05→20:04)
[2021-09-05] MEDS ORDERED: DIGOXIN INJ 0.5 MG/2 ML AMP (J1160) IV ONE (08:35)
[2021-09-05] MEDS: APIXABAN 2.5 MG TAB (ELIQUIS) PO SCH (08:57)
[2021-09-05] MEDS: CLOPIDOGREL 75 MG TAB PO SCH (08:57)
[2021-09-05] MEDS: ATORVASTATIN 20 MG TAB PO SCH (08:57)
[2021-09-05] MEDS: POTASSIUM CHLORIDE 10MEQ SR TABLET PO SCH ×3 (08:57→20:16)
[2021-09-05] MEDS: OMEPRAZOLE 20MG CAP PO SCH (08:57)
[2021-09-05] MEDS: CALCITRIOL 0.25 MCG CAP (S0169) PO SCH (08:57)
[2021-09-05] MEDS: aMILoride 5 MG TAB PO SCH ×2 (09:00→20:16)
[2021-09-05] MEDS ORDERED: DIGOXIN INJ 0.5 MG/2 ML AMP (J1160) IV STA ×2 (09:53→10:41)
[2021-09-05] MEDS ORDERED: IRON SUCROSE 100MG 5ML VIAL (J1756 PER 1MG) IV SCH (10:00)
[2021-09-05] MEDS: allopurinoL 300 MG TAB PO SCH (10:04)
[2021-09-05] MEDS: LEVALBUTEROL 1.25 MG/0.5 ML CONCENTRATE NEB NEB SCH ×4 (10:21→20:00)
[2021-09-05] MEDS: VITAMIN D 1,000 INTERNATIONAL UNITS TABLET PO SCH (10:21)
[2021-09-05] MEDS ORDERED: METOPROLOL TART 25 MG TABLET PO ONE (10:45)
[2021-09-05 11:49] LABS: MAGNESIUM LEVEL 2.1 MG/DL (1.8-2.4); PHOSPHORUS LEVEL 4.2 MG/DL (2.5-4.9)
[2021-09-05 12:28] LABS: FOLATE 5.1 NG/ML (>5.4)
[2021-09-05] MEDS: IRON SUCROSE 250 MG in NS 250 ML IV SCH (12:31)
[2021-09-05] MEDS: ACETAMINOPHEN TAB 650MG DOSE (2X325MG) PO PRN (12:33)
[2021-09-05] MEDS: ONDANSETRON 4MG/2ML VIAL IV PRN (15:38)
[2021-09-05] MEDS: LevoFLOXacin IV 750 MG in IV 1 EA IV SCH (20:18)
[2021-09-06] VITALS (8 sets, daily range): BP systolic 122–143; BP diastolic 56–66
[2021-09-06] MEDS: FUROSEMIDE injection 250 MG in D5W 225 ML IV SCH ×2 (01:30→10:11)
[2021-09-06] MEDS ORDERED: CALCIUM CARBONATE 500 MG CHEW U/D PO ONE (02:00)
[2021-09-06] MEDS: SODIUM CHLORIDE 0.9% INJ 10 ML SYR IV SCH ×2 (05:12→18:27)
[2021-09-06] MEDS: METOPROLOL TART 12.5 MG PER 1/2 TAB PO SCH ×4 (05:22→17:35)
[2021-09-06 05:26] LABS: HEMOGLOBIN 7.7 g/dl (12.0-15.5); MEAN CORPUSCULAR HEMOGLOBIN 29.4 pg (27.0-33.0); MEAN CORPUSCULAR HGB CONC 32.1 g/dl (32.0-36.5); MEAN CORPUSCULAR VOLUME 91.6 fl (80.0-96.0); PLATELET COUNT, AUTOMATED 297 10^3/uL (150-450); RED BLOOD COUNT 2.62 10^6/uL (4.00-5.40); WHITE BLOOD COUNT 10.6 10^3/uL (4.0-10.0)
[2021-09-06] MEDS ORDERED: ceFAZolin SOD 2 GM in IV 1 EA IV ONE (06:00)
[2021-09-06 06:18] LABS: ALBUMIN 2.4 GM/DL (3.2-5.2); BILIRUBIN,TOTAL 0.2 MG/DL (0.2-1.0); CALCIUM LEVEL 8.4 MG/DL (8.8-10.2); CREATININE FOR GFR 2.24 MG/DL (0.55-1.30); GLOMERULAR FILTRATION RATE 21.9 (>32); POTASSIUM SERUM 4.7 MEQ/L (3.5-5.1); TOTAL PROTEIN 5.4 GM/DL (6.4-8.2)
[2021-09-06] MEDS: SYMBICORT 160/4.5MCG INHALER 6GM INH SCH ×2 (07:29→20:00)
[2021-09-06] MEDS: LEVALBUTEROL 1.25 MG/0.5 ML CONCENTRATE NEB NEB SCH ×4 (07:29→20:00)
[2021-09-06] MEDS: CALCITRIOL 0.25 MCG CAP (S0169) PO SCH (08:43)
[2021-09-06] MEDS: ATORVASTATIN 20 MG TAB PO SCH (08:43)
[2021-09-06] MEDS: CLOPIDOGREL 75 MG TAB PO SCH (08:44)
[2021-09-06] MEDS: POTASSIUM CHLORIDE 10MEQ SR TABLET PO SCH (08:44)
[2021-09-06] MEDS: VITAMIN D 1,000 INTERNATIONAL UNITS TABLET PO SCH (08:44)
[2021-09-06] MEDS: OMEPRAZOLE 20MG CAP PO SCH (08:44)
[2021-09-06] MEDS ORDERED: DIGOXIN 0.125 MG TAB PO SCH (09:00)
[2021-09-06] MEDS: SPIRONOLACTONE 50 MG TAB PO SCH ×2 (10:02→23:30)
[2021-09-06] MEDS: allopurinoL 300 MG TAB PO SCH (10:02)
[2021-09-06] MEDS: IRON SUCROSE 250 MG in NS 250 ML IV SCH (12:14)
[2021-09-06] MEDS: traMADol 50 MG TAB PO PRN ×2 (12:21→23:29)
[2021-09-06] MEDS ORDERED: LIDOCAINE 2% 100MG/5ML SDV (FOR ANES.) As Ordered ONE (15:25)
[2021-09-06] MEDS ORDERED: ONDANSETRON 4MG/2ML VIAL As Ordered ONE ×2 (15:25→18:12)
[2021-09-06] MEDS ORDERED: fentaNYL 100 MCG/2 ML INJECTION As Ordered ONE (15:25)
[2021-09-06] MEDS ORDERED: MIDAZOLAM INJ 2MG/2ML VIAL (J2250 PER 1MG) As Ordered ONE ×2 (15:25→18:11)
[2021-09-06] MEDS ORDERED: propofoL 500 MG/50 ML VIAL As Ordered ONE (18:10)
[2021-09-06] MEDS ORDERED: KETAMINE HCL 200 MG/20 ML VIAL As Ordered ONE (18:11)
[2021-09-06] MEDS ORDERED: dexameTHASONE 4 MG/ML 1ML VIAL (J1100 PER 1MG) As Ordered ONE (18:11)
[2021-09-06] MEDS ORDERED: LIDOCAINE 1% SDV 30ML VIAL As Ordered ONE (18:47)
[2021-09-06] MEDS ORDERED: ceFAZolin 2 GM/D5W 50 ML IV BAG (J0690 PER 500MG) As Ordered ONE (18:59)
[2021-09-06] MEDS ORDERED: LR 1,000 ML IV SCH (21:05)
[2021-09-06] MEDS ORDERED: ONDANSETRON 4MG/2ML VIAL IV PRN (21:05)
[2021-09-06] MEDS: DOBUTamine HCL 500,000 MCG in IV 1 EA IV SCH (23:54)
[2021-09-07] VITALS (10 sets, daily range): BP systolic 117–166; BP diastolic 54–66; O2SAT 99
[2021-09-07] MEDS: AMIODARONE 200 MG TAB (PACERONE) PO SCH ×5 (00:40→23:12)
[2021-09-07] MEDS: METOPROLOL TART 25 MG TABLET PO SCH ×5 (00:40→23:12)
[2021-09-07] MEDS: MORPHINE 4 MG/ML 1ML VIAL/SYRINGE (J2270) IV PRN ×2 (00:42→14:46)
[2021-09-07] MEDS: ceFAZolin SOD 1 GM in D5W MINI-BAG PLUS 50 ML IV SCH ×4 (03:40→18:22)
[2021-09-07] MEDS ORDERED: ALTEPLASE 2MG/2ML VIAL XX ONE (04:30)
[2021-09-07 05:58] LABS: HEMATOCRIT 25.9 % (36.0-47.0); HEMOGLOBIN 8.3 g/dl (12.0-15.5); MEAN CORPUSCULAR HEMOGLOBIN 28.9 pg (27.0-33.0); MEAN CORPUSCULAR VOLUME 90.2 fl (80.0-96.0); PLATELET COUNT, AUTOMATED 349 10^3/uL (150-450); RED BLOOD COUNT 2.87 10^6/uL (4.00-5.40); WHITE BLOOD COUNT 10.5 10^3/uL (4.0-10.0)
[2021-09-07 06:15] LABS: ALBUMIN 2.5 GM/DL (3.2-5.2); BILIRUBIN,TOTAL 0.2 MG/DL (0.2-1.0); CALCIUM LEVEL 8.9 MG/DL (8.8-10.2); CREATININE FOR GFR 2.04 MG/DL (0.55-1.30); GLOMERULAR FILTRATION RATE 24.4 (>32); POTASSIUM SERUM 4.4 MEQ/L (3.5-5.1)
[2021-09-07] MEDS: SODIUM CHLORIDE 0.9% INJ 10 ML SYR IV SCH ×2 (06:31→18:04)
[2021-09-07] MEDS: LEVALBUTEROL 1.25 MG/0.5 ML CONCENTRATE NEB NEB SCH ×4 (08:00→19:31)
[2021-09-07] MEDS: SYMBICORT 160/4.5MCG INHALER 6GM INH SCH ×2 (08:03→19:31)
[2021-09-07] MEDS: SPIRONOLACTONE 50 MG TAB PO SCH ×2 (08:29→19:51)
[2021-09-07] MEDS: CLOPIDOGREL 75 MG TAB PO SCH (08:29)
[2021-09-07] MEDS: TORSEMIDE (DEMADEX) 50 MG PER 1/2 TAB PO SCH ×2 (08:29→17:32)
[2021-09-07] MEDS: ATORVASTATIN 20 MG TAB PO SCH (08:29)
[2021-09-07] MEDS: OMEPRAZOLE 20MG CAP PO SCH (08:29)
[2021-09-07] MEDS: VITAMIN D 1,000 INTERNATIONAL UNITS TABLET PO SCH (08:29)
[2021-09-07] MEDS: POTASSIUM CHLORIDE 10MEQ SR TABLET PO SCH (08:30)
[2021-09-07] MEDS: CALCITRIOL 0.25 MCG CAP (S0169) PO SCH (08:30)
[2021-09-07] MEDS: allopurinoL 300 MG TAB PO SCH (08:30)
[2021-09-07] MEDS: traMADol 50 MG TAB PO PRN ×3 (08:44→23:12)
[2021-09-07] MEDS: HumaLOG INSULIN (NovoLOG) PER UNIT SC SCH ×2 (12:23→18:23)
[2021-09-07] MEDS: IRON SUCROSE 250 MG in NS 250 ML IV SCH (12:50)
[2021-09-07] MEDS: MIRALAX *UNIT DOSE* 17GM PACKET PO SCH (19:51)
[2021-09-07] MEDS: DOCUSATE SODIUM 100MG CAPSULE PO SCH (19:51)
[2021-09-07] MEDS: SENNA 8.6 MG TAB (SENOKOT) PO SCH (19:51)
[2021-09-07] MEDS ORDERED: LevoFLOXacin 750 MG TABLET PO SCH (20:00)
[2021-09-08] MEDS: DOBUTamine HCL 500,000 MCG in IV 1 EA IV SCH (01:21)
[2021-09-08] MEDS: MORPHINE 4 MG/ML 1ML VIAL/SYRINGE (J2270) IV PRN (01:22)
[2021-09-08 04:08] VITALS: BP 136/63
[2021-09-08] MEDS: traMADol 50 MG TAB PO PRN ×2 (04:14→19:19)
[2021-09-08 04:27] LABS: HEMATOCRIT 23.5 % (36.0-47.0); HEMOGLOBIN 7.5 g/dl (12.0-15.5); MEAN CORPUSCULAR HGB CONC 31.9 g/dl (32.0-36.5); MEAN CORPUSCULAR VOLUME 90.7 fl (80.0-96.0); PLATELET COUNT, AUTOMATED 285 10^3/uL (150-450); RED BLOOD COUNT 2.59 10^6/uL (4.00-5.40); WHITE BLOOD COUNT 15.7 10^3/uL (4.0-10.0)
[2021-09-08 04:55] LABS: ALBUMIN 2.2 GM/DL (3.2-5.2); BILIRUBIN,TOTAL 0.1 MG/DL (0.2-1.0); CALCIUM LEVEL 8.7 MG/DL (8.8-10.2); CREATININE FOR GFR 2.19 MG/DL (0.55-1.30); GLOMERULAR FILTRATION RATE 22.5 (>32); POTASSIUM SERUM 4.4 MEQ/L (3.5-5.1); TOTAL PROTEIN 5.3 GM/DL (6.4-8.2)
[2021-09-08] MEDS: AMIODARONE 200 MG TAB (PACERONE) PO SCH ×4 (05:30→23:39)
[2021-09-08] MEDS: METOPROLOL TART 25 MG TABLET PO SCH ×4 (05:31→23:39)
[2021-09-08] MEDS: SODIUM CHLORIDE 0.9% INJ 10 ML SYR IV SCH ×2 (05:32→18:10)
[2021-09-08] MEDS: SYMBICORT 160/4.5MCG INHALER 6GM INH SCH ×2 (07:34→20:15)
[2021-09-08] MEDS: LEVALBUTEROL 1.25 MG/0.5 ML CONCENTRATE NEB NEB SCH (07:34)
[2021-09-08 08:00] VITALS: BP 134/58
[2021-09-08] MEDS: TORSEMIDE (DEMADEX) 50 MG PER 1/2 TAB PO SCH (08:18)
[2021-09-08] MEDS: MIRALAX *UNIT DOSE* 17GM PACKET PO SCH (08:18)
[2021-09-08] MEDS: CLOPIDOGREL 75 MG TAB PO SCH (08:19)
[2021-09-08] MEDS: SPIRONOLACTONE 50 MG TAB PO SCH ×2 (08:19→19:20)
[2021-09-08] MEDS: OMEPRAZOLE 20MG CAP PO SCH (08:19)
[2021-09-08] MEDS: allopurinoL 300 MG TAB PO SCH (08:19)
[2021-09-08] MEDS: ATORVASTATIN 20 MG TAB PO SCH (08:19)
[2021-09-08] MEDS: DOCUSATE SODIUM 100MG CAPSULE PO SCH ×2 (08:19→19:19)
[2021-09-08] MEDS: CALCITRIOL 0.25 MCG CAP (S0169) PO SCH (08:20)
[2021-09-08] MEDS: VITAMIN D 1,000 INTERNATIONAL UNITS TABLET PO SCH (08:20)
[2021-09-08] MEDS: POTASSIUM CHLORIDE 10MEQ SR TABLET PO SCH (08:20)
[2021-09-08] MEDS: HumaLOG INSULIN (NovoLOG) PER UNIT SC SCH ×3 (08:56→18:11)
[2021-09-08 12:00] VITALS: BP 142/63
[2021-09-08] MEDS ORDERED: metOLazone 2.5 MG TAB PO ONE (12:00)
[2021-09-08] MEDS: IRON SUCROSE 250 MG in NS 250 ML IV SCH (13:02)
[2021-09-08 16:00] VITALS: BP 146/60
[2021-09-08] MEDS ORDERED: TORSEMIDE (DEMADEX) 50 MG PER 1/2 TAB PO SCH (17:00)
[2021-09-08] MEDS: ACETAMINOPHEN TAB 650MG DOSE (2X325MG) PO PRN (18:09)
[2021-09-08 19:10] VITALS: BP 134/62
[2021-09-08] MEDS: APIXABAN 2.5 MG TAB (ELIQUIS) PO SCH (19:19)
[2021-09-08] MEDS: SENNA 8.6 MG TAB (SENOKOT) PO SCH (19:20)
[2021-09-08 23:32] VITALS: BP 160/76
[2021-09-08] MEDS: RAMELTEON 8 MG TAB (ROZEREM) PO PRN (23:39)
[2021-09-09] MEDS: DOBUTamine HCL 500,000 MCG in IV 1 EA IV SCH ×2 (04:09→04:20)
[2021-09-09 04:10] VITALS: BP 158/78
[2021-09-09] MEDS: SODIUM CHLORIDE 0.9% INJ 10 ML SYR IV SCH ×2 (04:10→17:43)
[2021-09-09 04:41] LABS: HEMATOCRIT 26.3 % (36.0-47.0); HEMOGLOBIN 8.4 g/dl (12.0-15.5); MEAN CORPUSCULAR HEMOGLOBIN 28.9 pg (27.0-33.0); MEAN CORPUSCULAR HGB CONC 31.9 g/dl (32.0-36.5); MEAN CORPUSCULAR VOLUME 90.4 fl (80.0-96.0); PLATELET COUNT, AUTOMATED 324 10^3/uL (150-450); RED BLOOD COUNT 2.91 10^6/uL (4.00-5.40); WHITE BLOOD COUNT 17.4 10^3/uL (4.0-10.0)
[2021-09-09 05:09] LABS: ALBUMIN 2.5 GM/DL (3.2-5.2); BILIRUBIN,TOTAL 0.3 MG/DL (0.2-1.0); CALCIUM LEVEL 9.1 MG/DL (8.8-10.2); CREATININE FOR GFR 2.09 MG/DL (0.55-1.30); GLOMERULAR FILTRATION RATE 23.7 (>32); POTASSIUM SERUM 4.2 MEQ/L (3.5-5.1); TOTAL PROTEIN 5.8 GM/DL (6.4-8.2)
[2021-09-09] MEDS: AMIODARONE 200 MG TAB (PACERONE) PO SCH ×3 (05:44→17:42)
[2021-09-09] MEDS: METOPROLOL TART 25 MG TABLET PO SCH ×3 (05:45→17:42)
[2021-09-09] MEDS: ACETAMINOPHEN TAB 650MG DOSE (2X325MG) PO PRN (05:51)
[2021-09-09] MEDS ORDERED: metOLazone 2.5 MG TAB PO ONE (07:00)
[2021-09-09] MEDS: SYMBICORT 160/4.5MCG INHALER 6GM INH SCH ×2 (07:34→19:34)
[2021-09-09 08:00] VITALS: BP 125/79
[2021-09-09] MEDS ORDERED: LevoFLOXacin IV 750 MG in IV 1 EA IV SCH (08:00)
[2021-09-09] MEDS: POTASSIUM CHLORIDE 10MEQ SR TABLET PO SCH (09:10)
[2021-09-09] MEDS: ATORVASTATIN 20 MG TAB PO SCH (09:10)
[2021-09-09] MEDS: MIRALAX *UNIT DOSE* 17GM PACKET PO SCH (09:10)
[2021-09-09] MEDS: DOCUSATE SODIUM 100MG CAPSULE PO SCH ×2 (09:10→20:13)
[2021-09-09] MEDS: OMEPRAZOLE 20MG CAP PO SCH (09:10)
[2021-09-09] MEDS: CLOPIDOGREL 75 MG TAB PO SCH (09:10)
[2021-09-09] MEDS: SPIRONOLACTONE 50 MG TAB PO SCH ×2 (09:11→20:12)
[2021-09-09] MEDS: VITAMIN D 1,000 INTERNATIONAL UNITS TABLET PO SCH (09:11)
[2021-09-09] MEDS: APIXABAN 2.5 MG TAB (ELIQUIS) PO SCH ×2 (09:11→20:13)
[2021-09-09] MEDS: allopurinoL 300 MG TAB PO SCH (09:11)
[2021-09-09] MEDS: CALCITRIOL 0.25 MCG CAP (S0169) PO SCH (09:11)
[2021-09-09] MEDS: HumaLOG INSULIN (NovoLOG) PER UNIT SC SCH ×3 (09:12→17:43)
[2021-09-09] MEDS: TORSEMIDE 100 MG TAB PO SCH ×2 (09:12→17:42)
[2021-09-09] MEDS ORDERED: PERCOCET 5MG/325MG TAB PO PRN (10:50)
[2021-09-09 12:00] VITALS: BP 126/56
[2021-09-09] MEDS: CALCIUM CARBONATE 500 MG CHEW U/D PO PRN (12:00)
[2021-09-09 16:00] VITALS: BP 126/87
[2021-09-09 20:00] VITALS: BP 112/67
[2021-09-09] MEDS: SENNA 8.6 MG TAB (SENOKOT) PO SCH (20:13)
[2021-09-09 20:36] LABS: MAGNESIUM LEVEL 2.3 MG/DL (1.8-2.4); PHOSPHORUS LEVEL 2.9 MG/DL (2.5-4.9)
[2021-09-10] VITALS (7 sets, daily range): BP systolic 121–157; BP diastolic 51–63
[2021-09-10] MEDS: METOPROLOL TART 25 MG TABLET PO SCH ×4 (00:59→17:04)
[2021-09-10] MEDS: AMIODARONE 200 MG TAB (PACERONE) PO SCH ×4 (00:59→17:04)
[2021-09-10] MEDS: SODIUM CHLORIDE 0.9% INJ 10 ML SYR IV SCH ×2 (06:25→17:05)
[2021-09-10] MEDS: SYMBICORT 160/4.5MCG INHALER 6GM INH SCH ×2 (07:46→19:41)
[2021-09-10] MEDS: CALCITRIOL 0.25 MCG CAP (S0169) PO SCH (08:25)
[2021-09-10] MEDS: OMEPRAZOLE 20MG CAP PO SCH (08:25)
[2021-09-10] MEDS: DOCUSATE SODIUM 100MG CAPSULE PO SCH ×2 (08:25→21:00)
[2021-09-10] MEDS: VITAMIN D 1,000 INTERNATIONAL UNITS TABLET PO SCH (08:25)
[2021-09-10] MEDS: allopurinoL 300 MG TAB PO SCH (08:25)
[2021-09-10] MEDS: HumaLOG INSULIN (NovoLOG) PER UNIT SC SCH ×3 (08:25→17:04)
[2021-09-10] MEDS: ATORVASTATIN 20 MG TAB PO SCH (08:25)
[2021-09-10] MEDS: APIXABAN 2.5 MG TAB (ELIQUIS) PO SCH ×2 (08:25→21:00)
[2021-09-10] MEDS: DOBUTamine HCL 500,000 MCG in IV 1 EA IV SCH (08:26)
[2021-09-10] MEDS: CLOPIDOGREL 75 MG TAB PO SCH (08:26)
[2021-09-10] MEDS: SPIRONOLACTONE 50 MG TAB PO SCH (08:26)
[2021-09-10] MEDS: MIRALAX *UNIT DOSE* 17GM PACKET PO SCH (08:26)
[2021-09-10] MEDS: POTASSIUM CHLORIDE 10MEQ SR TABLET PO SCH (08:26)
[2021-09-10] MEDS: TORSEMIDE 100 MG TAB PO SCH (08:26)
[2021-09-10] MEDS ORDERED: metOLazone 2.5 MG TAB PO ONE (09:15)
[2021-09-10 09:45] LABS: HEMATOCRIT 28.7 % (36.0-47.0); HEMOGLOBIN 9.4 g/dl (12.0-15.5); MEAN CORPUSCULAR HEMOGLOBIN 29.6 pg (27.0-33.0); MEAN CORPUSCULAR HGB CONC 32.8 g/dl (32.0-36.5); MEAN CORPUSCULAR VOLUME 90.3 fl (80.0-96.0); PLATELET COUNT, AUTOMATED 324 10^3/uL (150-450); RED BLOOD COUNT 3.18 10^6/uL (4.00-5.40)
[2021-09-10 10:18] LABS: ALBUMIN 2.3 GM/DL (3.2-5.2); BILIRUBIN,TOTAL 0.4 MG/DL (0.2-1.0); CALCIUM LEVEL 9.9 MG/DL (8.8-10.2); CREATININE FOR GFR 2.51 MG/DL (0.55-1.30); GLOMERULAR FILTRATION RATE 19.2 (>32); POTASSIUM SERUM 3.8 MEQ/L (3.5-5.1); TOTAL PROTEIN 6.6 GM/DL (6.4-8.2)
[2021-09-10] MEDS: CALCIUM CARBONATE 500 MG CHEW U/D PO PRN (12:50)
[2021-09-10 16:37] LABS: CALCIUM LEVEL 10.5 MG/DL (8.8-10.2); CREATININE FOR GFR 2.45 MG/DL (0.55-1.30); GLOMERULAR FILTRATION RATE 19.8 (>32); POTASSIUM SERUM 4.7 MEQ/L (3.5-5.1)
[2021-09-10] MEDS: SENNA 8.6 MG TAB (SENOKOT) PO SCH (21:00)
[2021-09-11] VITALS: BP 125/53
[2021-09-11] MEDS: AMIODARONE 200 MG TAB (PACERONE) PO SCH ×4 (05:31→18:06)
[2021-09-11] MEDS: METOPROLOL TART 25 MG TABLET PO SCH ×4 (05:31→18:07)
[2021-09-11] MEDS: SODIUM CHLORIDE 0.9% INJ 10 ML SYR IV SCH ×2 (05:33→18:05)
[2021-09-11 06:29] LABS: HEMATOCRIT 29.2 % (36.0-47.0); HEMOGLOBIN 9.3 g/dl (12.0-15.5); MEAN CORPUSCULAR HEMOGLOBIN 28.6 pg (27.0-33.0); MEAN CORPUSCULAR HGB CONC 31.8 g/dl (32.0-36.5); MEAN CORPUSCULAR VOLUME 89.8 fl (80.0-96.0); PLATELET COUNT, AUTOMATED 325 10^3/uL (150-450); RED BLOOD COUNT 3.25 10^6/uL (4.00-5.40); WHITE BLOOD COUNT 15.8 10^3/uL (4.0-10.0)
[2021-09-11 07:14] LABS: ALBUMIN 2.6 GM/DL (3.2-5.2); CREATININE FOR GFR 2.69 MG/DL (0.55-1.30); GLOMERULAR FILTRATION RATE 17.7 (>32); PHOSPHORUS LEVEL 3.4 MG/DL (2.5-4.9); POTASSIUM SERUM 3.9 MEQ/L (3.5-5.1)
[2021-09-11] MEDS: SYMBICORT 160/4.5MCG INHALER 6GM INH SCH ×2 (07:27→20:26)
[2021-09-11 08:34] VITALS: BP 127/58
[2021-09-11] MEDS ORDERED: TORSEMIDE (DEMADEX) 50 MG PER 1/2 TAB PO SCH (09:00)
[2021-09-11] MEDS: OMEPRAZOLE 20MG CAP PO SCH (09:42)
[2021-09-11] MEDS: CLOPIDOGREL 75 MG TAB PO SCH (09:42)
[2021-09-11] MEDS: HumaLOG INSULIN (NovoLOG) PER UNIT SC SCH ×3 (09:42→18:06)
[2021-09-11] MEDS: APIXABAN 2.5 MG TAB (ELIQUIS) PO SCH ×2 (09:42→21:00)
[2021-09-11] MEDS: allopurinoL 300 MG TAB PO SCH (09:42)
[2021-09-11] MEDS: CALCITRIOL 0.25 MCG CAP (S0169) PO SCH (09:42)
[2021-09-11] MEDS: ATORVASTATIN 20 MG TAB PO SCH (09:42)
[2021-09-11] MEDS: DOCUSATE SODIUM 100MG CAPSULE PO SCH ×2 (09:42→21:00)
[2021-09-11] MEDS: POTASSIUM CHLORIDE 10MEQ SR TABLET PO SCH (09:43)
[2021-09-11] MEDS: VITAMIN D 1,000 INTERNATIONAL UNITS TABLET PO SCH (09:43)
[2021-09-11] MEDS: MIRALAX *UNIT DOSE* 17GM PACKET PO SCH (09:48)
[2021-09-11 12:00] VITALS: BP 123/51
[2021-09-11] MEDS: SENNA 8.6 MG TAB (SENOKOT) PO SCH (21:00)
[2021-09-12] VITALS: BP 139/63
[2021-09-12] MEDS: AMIODARONE 200 MG TAB (PACERONE) PO SCH ×4 (00:46→18:28)
[2021-09-12] MEDS: METOPROLOL TART 25 MG TABLET PO SCH ×4 (00:46→18:27)
[2021-09-12 04:00] VITALS: BP 144/64
[2021-09-12 06:22] LABS: HEMATOCRIT 27.6 % (36.0-47.0); HEMOGLOBIN 8.8 g/dl (12.0-15.5); MEAN CORPUSCULAR HEMOGLOBIN 29.2 pg (27.0-33.0); MEAN CORPUSCULAR HGB CONC 31.9 g/dl (32.0-36.5); MEAN CORPUSCULAR VOLUME 91.7 fl (80.0-96.0); PLATELET COUNT, AUTOMATED 300 10^3/uL (150-450); RED BLOOD COUNT 3.01 10^6/uL (4.00-5.40); WHITE BLOOD COUNT 15.6 10^3/uL (4.0-10.0)
[2021-09-12] MEDS: SODIUM CHLORIDE 0.9% INJ 10 ML SYR IV SCH ×2 (06:37→18:28)
[2021-09-12 06:39] LABS: ALBUMIN 2.5 GM/DL (3.2-5.2); CALCIUM LEVEL 9.6 MG/DL (8.8-10.2); CREATININE FOR GFR 2.65 MG/DL (0.55-1.30); PHOSPHORUS LEVEL 3.9 MG/DL (2.5-4.9)
[2021-09-12] MEDS: SYMBICORT 160/4.5MCG INHALER 6GM INH SCH ×2 (07:32→20:13)
[2021-09-12 08:00] VITALS: BP 116/55
[2021-09-12] MEDS: MIRALAX *UNIT DOSE* 17GM PACKET PO SCH (08:49)
[2021-09-12] MEDS: VITAMIN D 1,000 INTERNATIONAL UNITS TABLET PO SCH (08:49)
[2021-09-12] MEDS: POTASSIUM CHLORIDE 10MEQ SR TABLET PO SCH (08:49)
[2021-09-12] MEDS: OMEPRAZOLE 20MG CAP PO SCH (08:49)
[2021-09-12] MEDS: allopurinoL 300 MG TAB PO SCH (08:49)
[2021-09-12] MEDS: CLOPIDOGREL 75 MG TAB PO SCH (08:49)
[2021-09-12] MEDS: DOCUSATE SODIUM 100MG CAPSULE PO SCH ×2 (08:49→21:41)
[2021-09-12] MEDS: APIXABAN 2.5 MG TAB (ELIQUIS) PO SCH ×2 (08:49→21:41)
[2021-09-12] MEDS: CALCITRIOL 0.25 MCG CAP (S0169) PO SCH (08:49)
[2021-09-12] MEDS: ATORVASTATIN 20 MG TAB PO SCH (08:50)
[2021-09-12] MEDS: HumaLOG INSULIN (NovoLOG) PER UNIT SC SCH ×3 (08:50→17:30)
[2021-09-12 12:00] VITALS: BP 129/77
[2021-09-12] MEDS: PERCOCET 5MG/325MG TAB PO PRN (13:10)
[2021-09-12 16:00] VITALS: BP 122/59
[2021-09-12] MEDS: DOBUTamine HCL 500,000 MCG in IV 1 EA IV SCH (19:09)
[2021-09-12 20:00] VITALS: BP 122/58
[2021-09-12] MEDS: SENNA 8.6 MG TAB (SENOKOT) PO SCH (21:41)
[2021-09-12] MEDS ORDERED: BISACODYL 5 MG TAB PO ONE (22:10)
[2021-09-12] MEDS ORDERED: BISACODYL 10 MG SUPP PR ONE (23:05)
[2021-09-13] VITALS (7 sets, daily range): BP systolic 106–146; BP diastolic 57–76
[2021-09-13] MEDS: AMIODARONE 200 MG TAB (PACERONE) PO SCH ×4 (00:59→17:25)
[2021-09-13] MEDS: METOPROLOL TART 25 MG TABLET PO SCH ×4 (00:59→17:25)
[2021-09-13] MEDS: SODIUM CHLORIDE 0.9% INJ 10 ML SYR IV SCH ×2 (06:01→17:25)
[2021-09-13 06:12] LABS: HEMATOCRIT 27.3 % (36.0-47.0); MEAN CORPUSCULAR HEMOGLOBIN 30.2 pg (27.0-33.0); MEAN CORPUSCULAR VOLUME 91.6 fl (80.0-96.0); PLATELET COUNT, AUTOMATED 281 10^3/uL (150-450); RED BLOOD COUNT 2.98 10^6/uL (4.00-5.40)
[2021-09-13 06:36] LABS: ALBUMIN 2.7 GM/DL (3.2-5.2); CALCIUM LEVEL 9.2 MG/DL (8.8-10.2); CREATININE FOR GFR 2.73 MG/DL (0.55-1.30); GLOMERULAR FILTRATION RATE 17.4 (>32); PHOSPHORUS LEVEL 3.8 MG/DL (2.5-4.9); POTASSIUM SERUM 4.6 MEQ/L (3.5-5.1)
[2021-09-13] MEDS: SYMBICORT 160/4.5MCG INHALER 6GM INH SCH ×2 (07:29→19:29)
[2021-09-13] MEDS: MIRALAX *UNIT DOSE* 17GM PACKET PO SCH (09:09)
[2021-09-13] MEDS: HumaLOG INSULIN (NovoLOG) PER UNIT SC SCH ×3 (09:09→17:25)
[2021-09-13] MEDS: VITAMIN D 1,000 INTERNATIONAL UNITS TABLET PO SCH (09:10)
[2021-09-13] MEDS: ATORVASTATIN 20 MG TAB PO SCH (09:10)
[2021-09-13] MEDS: DOCUSATE SODIUM 100MG CAPSULE PO SCH ×2 (09:10→21:44)
[2021-09-13] MEDS: CALCITRIOL 0.25 MCG CAP (S0169) PO SCH (09:10)
[2021-09-13] MEDS: APIXABAN 2.5 MG TAB (ELIQUIS) PO SCH ×2 (09:10→21:45)
[2021-09-13] MEDS: POTASSIUM CHLORIDE 10MEQ SR TABLET PO SCH (09:10)
[2021-09-13] MEDS: allopurinoL 300 MG TAB PO SCH (09:10)
[2021-09-13] MEDS: OMEPRAZOLE 20MG CAP PO SCH (09:10)
[2021-09-13] MEDS: CLOPIDOGREL 75 MG TAB PO SCH (09:11)
[2021-09-13] MEDS: PERCOCET 5MG/325MG TAB PO PRN ×2 (09:19→16:38)
[2021-09-13] MEDS: ONDANSETRON 4MG/2ML VIAL IV PRN (10:34)
[2021-09-13] MEDS: SENNA 8.6 MG TAB (SENOKOT) PO SCH (21:45)
[2021-09-14] VITALS (7 sets, daily range): BP systolic 119–141; BP diastolic 53–63
[2021-09-14] MEDS ORDERED: SODIUM CHLORIDE 1 GM TAB PO ONE (00:20)
[2021-09-14] MEDS: METOPROLOL TART 25 MG TABLET PO SCH ×2 (05:37)
[2021-09-14] MEDS: AMIODARONE 200 MG TAB (PACERONE) PO SCH ×3 (05:38→20:26)
[2021-09-14] MEDS: SODIUM CHLORIDE 0.9% INJ 10 ML SYR IV SCH ×2 (05:38→17:31)
[2021-09-14 05:39] LABS: HEMATOCRIT 28.1 % (36.0-47.0); HEMOGLOBIN 9.3 g/dl (12.0-15.5); MEAN CORPUSCULAR HEMOGLOBIN 30.4 pg (27.0-33.0); MEAN CORPUSCULAR HGB CONC 33.1 g/dl (32.0-36.5); MEAN CORPUSCULAR VOLUME 91.8 fl (80.0-96.0); PLATELET COUNT, AUTOMATED 280 10^3/uL (150-450); RED BLOOD COUNT 3.06 10^6/uL (4.00-5.40); WHITE BLOOD COUNT 21.4 10^3/uL (4.0-10.0)
[2021-09-14 06:05] LABS: CREATININE FOR GFR 2.59 MG/DL (0.55-1.30); GLOMERULAR FILTRATION RATE 18.5 (>32); POTASSIUM SERUM 4.8 MEQ/L (3.5-5.1)
[2021-09-14] MEDS: SYMBICORT 160/4.5MCG INHALER 6GM INH SCH ×2 (07:30→19:21)
[2021-09-14] MEDS: OMEPRAZOLE 20MG CAP PO SCH (08:21)
[2021-09-14] MEDS: HumaLOG INSULIN (NovoLOG) PER UNIT SC SCH ×3 (08:21→17:32)
[2021-09-14] MEDS: DOCUSATE SODIUM 100MG CAPSULE PO SCH ×2 (08:21→20:26)
[2021-09-14] MEDS: CALCITRIOL 0.25 MCG CAP (S0169) PO SCH (08:22)
[2021-09-14] MEDS: POTASSIUM CHLORIDE 10MEQ SR TABLET PO SCH (08:22)
[2021-09-14] MEDS: allopurinoL 300 MG TAB PO SCH (08:22)
[2021-09-14] MEDS: CLOPIDOGREL 75 MG TAB PO SCH (08:22)
[2021-09-14] MEDS: VITAMIN D 1,000 INTERNATIONAL UNITS TABLET PO SCH (08:22)
[2021-09-14] MEDS: APIXABAN 2.5 MG TAB (ELIQUIS) PO SCH ×2 (08:22→20:26)
[2021-09-14] MEDS: MIRALAX *UNIT DOSE* 17GM PACKET PO SCH (08:23)
[2021-09-14] MEDS: ATORVASTATIN 20 MG TAB PO SCH (08:23)
[2021-09-14] MEDS ORDERED: TOLVAPTAN 7.5 MG HALF-TAB PO ONE (10:00)
[2021-09-14] MEDS: CALCIUM CARBONATE 500 MG CHEW U/D PO PRN (12:35)
[2021-09-14] MEDS: cefTRIAXone SOD 1 GM in D5W MINI-BAG PLUS 50 ML IV SCH (13:34)
[2021-09-14] MEDS: SODIUM CHLORIDE 0.9% INJ 10 ML SYR IV PRN (14:30)
[2021-09-14] MEDS: CARVedilol 6.25 MG TAB PO SCH (20:26)
[2021-09-14] MEDS: SENNA 8.6 MG TAB (SENOKOT) PO SCH (20:27)
[2021-09-14] MEDS: CEPACOL LOZENGE PO PRN (23:45)
[2021-09-15] MEDS: cefTRIAXone SOD 1 GM in D5W MINI-BAG PLUS 50 ML IV SCH ×2 (02:43→13:28)
[2021-09-15 04:22] VITALS: BP 115/57
[2021-09-15] MEDS: SODIUM CHLORIDE 0.9% INJ 10 ML SYR IV SCH ×2 (06:08→17:17)
[2021-09-15 07:22] LABS: HEMATOCRIT 28.6 % (36.0-47.0); HEMOGLOBIN 9.3 g/dl (12.0-15.5); MEAN CORPUSCULAR HEMOGLOBIN 30.1 pg (27.0-33.0); MEAN CORPUSCULAR HGB CONC 32.5 g/dl (32.0-36.5); MEAN CORPUSCULAR VOLUME 92.6 fl (80.0-96.0); PLATELET COUNT, AUTOMATED 269 10^3/uL (150-450); RED BLOOD COUNT 3.09 10^6/uL (4.00-5.40); WHITE BLOOD COUNT 17.1 10^3/uL (4.0-10.0)
[2021-09-15] MEDS: SYMBICORT 160/4.5MCG INHALER 6GM INH SCH ×2 (07:34→17:58)
[2021-09-15 07:57] LABS: CALCIUM LEVEL 9.1 MG/DL (8.8-10.2); CREATININE FOR GFR 2.55 MG/DL (0.55-1.30); GLOMERULAR FILTRATION RATE 18.9 (>32); POTASSIUM SERUM 5.1 MEQ/L (3.5-5.1)
[2021-09-15 08:00] VITALS: BP 133/58
[2021-09-15] MEDS: HumaLOG INSULIN (NovoLOG) PER UNIT SC SCH ×3 (08:11→17:17)
[2021-09-15] MEDS: VITAMIN D 1,000 INTERNATIONAL UNITS TABLET PO SCH (08:11)
[2021-09-15] MEDS: CLOPIDOGREL 75 MG TAB PO SCH (08:12)
[2021-09-15] MEDS: allopurinoL 300 MG TAB PO SCH (08:12)
[2021-09-15] MEDS: CALCITRIOL 0.25 MCG CAP (S0169) PO SCH (08:12)
[2021-09-15] MEDS: CARVedilol 6.25 MG TAB PO SCH ×2 (08:13→20:53)
[2021-09-15] MEDS: APIXABAN 2.5 MG TAB (ELIQUIS) PO SCH ×2 (08:13→20:52)
[2021-09-15] MEDS: OMEPRAZOLE 20MG CAP PO SCH (08:13)
[2021-09-15] MEDS: DOCUSATE SODIUM 100MG CAPSULE PO SCH ×2 (08:13→20:53)
[2021-09-15] MEDS: ATORVASTATIN 20 MG TAB PO SCH (08:14)
[2021-09-15] MEDS: AMIODARONE 200 MG TAB (PACERONE) PO SCH ×2 (08:14→20:52)
[2021-09-15] MEDS: MIRALAX *UNIT DOSE* 17GM PACKET PO SCH (08:14)
[2021-09-15] MEDS ORDERED: TOLVAPTAN 15 MG TAB (SAMSCA) PO ONE (10:00)
[2021-09-15] MEDS: TORSEMIDE 20 MG TAB PO SCH ×2 (10:28→17:18)
[2021-09-15 12:00] VITALS: BP 106/52
[2021-09-15] MEDS: SODIUM CHLORIDE 0.9% INJ 10 ML SYR IV PRN (14:21)
[2021-09-15 16:00] VITALS: BP 105/45
[2021-09-15 17:08] VITALS: BP 113/54
[2021-09-15] MEDS ORDERED: NEOSPORIN OINT 0.9 GM PKT TOP ONE (19:00)
[2021-09-15 20:00] VITALS: BP_SYST 109; BP_SYST 135; BP_DIAS 53; BP_DIAS 63
[2021-09-15] MEDS: SENNA 8.6 MG TAB (SENOKOT) PO SCH (20:53)
[2021-09-16] VITALS: BP 119/68
[2021-09-16] MEDS: cefTRIAXone SOD 1 GM in D5W MINI-BAG PLUS 50 ML IV SCH ×2 (02:18→13:52)
[2021-09-16 04:00] VITALS: BP 121/63
[2021-09-16] MEDS: SODIUM CHLORIDE 0.9% INJ 10 ML SYR IV SCH ×2 (05:45→17:34)
[2021-09-16] MEDS: SYMBICORT 160/4.5MCG INHALER 6GM INH SCH ×2 (07:52→20:03)
[2021-09-16] MEDS: MIRALAX *UNIT DOSE* 17GM PACKET PO SCH (08:26)
[2021-09-16] MEDS: AMIODARONE 200 MG TAB (PACERONE) PO SCH ×2 (08:26→21:03)
[2021-09-16] MEDS: HumaLOG INSULIN (NovoLOG) PER UNIT SC SCH ×3 (08:26→17:34)
[2021-09-16] MEDS: CARVedilol 6.25 MG TAB PO SCH ×2 (08:27→21:03)
[2021-09-16] MEDS: DOCUSATE SODIUM 100MG CAPSULE PO SCH ×2 (08:27→21:02)
[2021-09-16] MEDS: CLOPIDOGREL 75 MG TAB PO SCH (08:27)
[2021-09-16] MEDS: allopurinoL 300 MG TAB PO SCH (08:27)
[2021-09-16] MEDS: VITAMIN D 1,000 INTERNATIONAL UNITS TABLET PO SCH (08:27)
[2021-09-16] MEDS: OMEPRAZOLE 20MG CAP PO SCH (08:27)
[2021-09-16] MEDS: ATORVASTATIN 20 MG TAB PO SCH (08:27)
[2021-09-16] MEDS: APIXABAN 2.5 MG TAB (ELIQUIS) PO SCH ×2 (08:28→21:03)
[2021-09-16] MEDS: TORSEMIDE 20 MG TAB PO SCH ×2 (08:28→17:34)
[2021-09-16] MEDS: CALCITRIOL 0.25 MCG CAP (S0169) PO SCH (08:28)
[2021-09-16 08:40] VITALS: BP 126/63
[2021-09-16 09:00] LABS: HEMATOCRIT 28.7 % (36.0-47.0); HEMOGLOBIN 9.4 g/dl (12.0-15.5); MEAN CORPUSCULAR HGB CONC 32.8 g/dl (32.0-36.5); MEAN CORPUSCULAR VOLUME 91.7 fl (80.0-96.0); PLATELET COUNT, AUTOMATED 274 10^3/uL (150-450); RED BLOOD COUNT 3.13 10^6/uL (4.00-5.40); WHITE BLOOD COUNT 15.8 10^3/uL (4.0-10.0)
[2021-09-16 09:25] LABS: CALCIUM LEVEL 9.3 MG/DL (8.8-10.2); CREATININE FOR GFR 2.59 MG/DL (0.55-1.30); GLOMERULAR FILTRATION RATE 18.5 (>32); MAGNESIUM LEVEL 2.3 MG/DL (1.8-2.4); POTASSIUM SERUM 3.9 MEQ/L (3.5-5.1)
[2021-09-16] MEDS: ACETAMINOPHEN TAB 650MG DOSE (2X325MG) PO PRN (09:32)
[2021-09-16 11:40] VITALS: BP 105/57
[2021-09-16] MEDS: PERCOCET 5MG/325MG TAB PO PRN ×2 (11:58→16:07)
[2021-09-16 17:47] VITALS: BP 147/65
[2021-09-16 20:00] VITALS: BP 123/61
[2021-09-16] MEDS: SENNA 8.6 MG TAB (SENOKOT) PO SCH (21:03)
[2021-09-17] VITALS: BP 119/67
[2021-09-17] MEDS: RAMELTEON 8 MG TAB (ROZEREM) PO PRN (00:19)
[2021-09-17] MEDS: cefTRIAXone SOD 1 GM in D5W MINI-BAG PLUS 50 ML IV SCH (02:16)
[2021-09-17] MEDS: SODIUM CHLORIDE 0.9% INJ 10 ML SYR IV SCH ×2 (02:34→17:51)
[2021-09-17] MEDS: PERCOCET 5MG/325MG TAB PO PRN ×2 (03:30→16:18)
[2021-09-17 04:00] VITALS: BP 133/58
[2021-09-17] MEDS: SYMBICORT 160/4.5MCG INHALER 6GM INH SCH ×2 (07:43→20:27)
[2021-09-17 08:00] VITALS: BP 132/62
[2021-09-17] MEDS: HumaLOG INSULIN (NovoLOG) PER UNIT SC SCH ×3 (09:35→18:03)
[2021-09-17] MEDS: OMEPRAZOLE 20MG CAP PO SCH (09:39)
[2021-09-17] MEDS: DOCUSATE SODIUM 100MG CAPSULE PO SCH ×2 (09:39→21:05)
[2021-09-17] MEDS: ATORVASTATIN 20 MG TAB PO SCH (09:39)
[2021-09-17] MEDS: allopurinoL 300 MG TAB PO SCH (09:39)
[2021-09-17] MEDS: CLOPIDOGREL 75 MG TAB PO SCH (09:39)
[2021-09-17] MEDS: MIRALAX *UNIT DOSE* 17GM PACKET PO SCH (09:39)
[2021-09-17] MEDS: VITAMIN D 1,000 INTERNATIONAL UNITS TABLET PO SCH (09:40)
[2021-09-17] MEDS: CALCITRIOL 0.25 MCG CAP (S0169) PO SCH (09:40)
[2021-09-17] MEDS: APIXABAN 2.5 MG TAB (ELIQUIS) PO SCH ×2 (09:40→21:05)
[2021-09-17] MEDS: AMIODARONE 200 MG TAB (PACERONE) PO SCH ×2 (09:40→21:05)
[2021-09-17] MEDS: CARVedilol 6.25 MG TAB PO SCH ×2 (09:40→21:06)
[2021-09-17 11:14] LABS: HEMOGLOBIN 9.8 g/dl (12.0-15.5); MEAN CORPUSCULAR HEMOGLOBIN 30.2 pg (27.0-33.0); MEAN CORPUSCULAR HGB CONC 33.8 g/dl (32.0-36.5); MEAN CORPUSCULAR VOLUME 89.5 fl (80.0-96.0); PLATELET COUNT, AUTOMATED 298 10^3/uL (150-450); RED BLOOD COUNT 3.24 10^6/uL (4.00-5.40); WHITE BLOOD COUNT 17.8 10^3/uL (4.0-10.0)
[2021-09-17 11:43] LABS: CALCIUM LEVEL 9.1 MG/DL (8.8-10.2); CREATININE FOR GFR 2.63 MG/DL (0.55-1.30); GLOMERULAR FILTRATION RATE 18.2 (>32); MAGNESIUM LEVEL 2.1 MG/DL (1.8-2.4); POTASSIUM SERUM 4.1 MEQ/L (3.5-5.1)
[2021-09-17] MEDS: TORSEMIDE (DEMADEX) 50 MG PER 1/2 TAB PO SCH ×2 (12:35→18:03)
[2021-09-17] MEDS: ACETAMINOPHEN TAB 650MG DOSE (2X325MG) PO PRN (12:35)
[2021-09-17 13:49] LABS: C REACTIVE PROTEIN QUANTITATIV 0.94 MG/DL (0.00-0.30)
[2021-09-17 14:21] LABS: ERYTHROCYTE SEDIMENTATION RATE 54 mm/hr (0-30)
[2021-09-17 16:00] VITALS: BP 142/65
[2021-09-17 20:00] VITALS: BP 138/63
[2021-09-17] MEDS: DOXYCYCLINE HYCLATE 100MG TABLET PO SCH (21:05)
[2021-09-17] MEDS: SENNA 8.6 MG TAB (SENOKOT) PO SCH (21:05)
[2021-09-17] MEDS: CALCIUM CARBONATE 500 MG CHEW U/D PO PRN (23:10)
[2021-09-18] MEDS: RAMELTEON 8 MG TAB (ROZEREM) PO PRN (03:42)
[2021-09-18] MEDS: SODIUM CHLORIDE 0.9% INJ 10 ML SYR IV SCH ×2 (03:53→17:51)
[2021-09-18 04:00] VITALS: BP 141/63
[2021-09-18 05:40] LABS: HEMOGLOBIN 9.7 g/dl (12.0-15.5); MEAN CORPUSCULAR HEMOGLOBIN 30.3 pg (27.0-33.0); MEAN CORPUSCULAR HGB CONC 33.4 g/dl (32.0-36.5); MEAN CORPUSCULAR VOLUME 90.6 fl (80.0-96.0); PLATELET COUNT, AUTOMATED 253 10^3/uL (150-450); WHITE BLOOD COUNT 17.4 10^3/uL (4.0-10.0)
[2021-09-18 06:04] LABS: CALCIUM LEVEL 8.6 MG/DL (8.8-10.2); CREATININE FOR GFR 2.44 MG/DL (0.55-1.30); GLOMERULAR FILTRATION RATE 19.9 (>32); MAGNESIUM LEVEL 2.1 MG/DL (1.8-2.4); POTASSIUM SERUM 4.8 MEQ/L (3.5-5.1)
[2021-09-18] MEDS: SYMBICORT 160/4.5MCG INHALER 6GM INH SCH ×2 (07:10→20:24)
[2021-09-18 07:46] VITALS: BP 141/65
[2021-09-18] MEDS: MIRALAX *UNIT DOSE* 17GM PACKET PO SCH (09:00)
[2021-09-18] MEDS: HumaLOG INSULIN (NovoLOG) PER UNIT SC SCH ×3 (09:00→17:41)
[2021-09-18] MEDS: TORSEMIDE (DEMADEX) 50 MG PER 1/2 TAB PO SCH (09:01)
[2021-09-18] MEDS: ACETAMINOPHEN TAB 650MG DOSE (2X325MG) PO PRN (09:01)
[2021-09-18] MEDS: APIXABAN 2.5 MG TAB (ELIQUIS) PO SCH ×2 (09:01→21:33)
[2021-09-18] MEDS: DOCUSATE SODIUM 100MG CAPSULE PO SCH ×2 (09:01→21:33)
[2021-09-18] MEDS: VITAMIN D 1,000 INTERNATIONAL UNITS TABLET PO SCH (09:01)
[2021-09-18] MEDS: OMEPRAZOLE 20MG CAP PO SCH (09:01)
[2021-09-18] MEDS: CARVedilol 6.25 MG TAB PO SCH ×2 (09:02→21:33)
[2021-09-18] MEDS: AMIODARONE 200 MG TAB (PACERONE) PO SCH ×2 (09:02→21:32)
[2021-09-18] MEDS: CLOPIDOGREL 75 MG TAB PO SCH (09:02)
[2021-09-18] MEDS: ATORVASTATIN 20 MG TAB PO SCH (09:02)
[2021-09-18] MEDS: allopurinoL 300 MG TAB PO SCH (09:02)
[2021-09-18] MEDS: DOXYCYCLINE HYCLATE 100MG TABLET PO SCH ×2 (09:02→21:33)
[2021-09-18] MEDS: CALCITRIOL 0.25 MCG CAP (S0169) PO SCH (09:02)
[2021-09-18] MEDS: PERCOCET 5MG/325MG TAB PO PRN (10:03)
[2021-09-18 12:15] VITALS: BP 140/63
[2021-09-18 16:14] VITALS: BP 136/62
[2021-09-18 19:55] VITALS: BP 132/60
[2021-09-18] MEDS: SENNA 8.6 MG TAB (SENOKOT) PO SCH (21:33)
[2021-09-19 04:45] VITALS: BP 129/61
[2021-09-19] MEDS: SODIUM CHLORIDE 0.9% INJ 10 ML SYR IV SCH ×2 (05:54→17:55)
[2021-09-19] MEDS: ONDANSETRON 4MG/2ML VIAL IV PRN (05:56)
[2021-09-19] MEDS: PERCOCET 5MG/325MG TAB PO PRN (06:01)
[2021-09-19 06:05] LABS: HEMATOCRIT 28.3 % (36.0-47.0); HEMOGLOBIN 9.5 g/dl (12.0-15.5); MEAN CORPUSCULAR HEMOGLOBIN 30.3 pg (27.0-33.0); MEAN CORPUSCULAR HGB CONC 33.6 g/dl (32.0-36.5); MEAN CORPUSCULAR VOLUME 90.1 fl (80.0-96.0); PLATELET COUNT, AUTOMATED 278 10^3/uL (150-450); RED BLOOD COUNT 3.14 10^6/uL (4.00-5.40); WHITE BLOOD COUNT 14.7 10^3/uL (4.0-10.0)
[2021-09-19 06:31] LABS: CALCIUM LEVEL 9.3 MG/DL (8.8-10.2); CREATININE FOR GFR 2.29 MG/DL (0.55-1.30); GLOMERULAR FILTRATION RATE 21.4 (>32); MAGNESIUM LEVEL 2.2 MG/DL (1.8-2.4); POTASSIUM SERUM 4.1 MEQ/L (3.5-5.1)
[2021-09-19] MEDS: SYMBICORT 160/4.5MCG INHALER 6GM INH SCH ×2 (07:13→19:22)
[2021-09-19 08:10] VITALS: BP 129/62
[2021-09-19] MEDS: OMEPRAZOLE 20MG CAP PO SCH (08:15)
[2021-09-19] MEDS: HumaLOG INSULIN (NovoLOG) PER UNIT SC SCH ×3 (08:15→17:55)
[2021-09-19] MEDS: DOCUSATE SODIUM 100MG CAPSULE PO SCH ×2 (08:15→20:00)
[2021-09-19] MEDS: CALCITRIOL 0.25 MCG CAP (S0169) PO SCH (08:16)
[2021-09-19] MEDS: CARVedilol 6.25 MG TAB PO SCH ×2 (08:16→20:01)
[2021-09-19] MEDS: ATORVASTATIN 20 MG TAB PO SCH (08:16)
[2021-09-19] MEDS: allopurinoL 300 MG TAB PO SCH (08:16)
[2021-09-19] MEDS: VITAMIN D 1,000 INTERNATIONAL UNITS TABLET PO SCH (08:16)
[2021-09-19] MEDS: APIXABAN 2.5 MG TAB (ELIQUIS) PO SCH ×2 (08:16→20:01)
[2021-09-19] MEDS: CLOPIDOGREL 75 MG TAB PO SCH (08:17)
[2021-09-19] MEDS: DOXYCYCLINE HYCLATE 100MG TABLET PO SCH ×2 (08:17→20:00)
[2021-09-19] MEDS: AMIODARONE 200 MG TAB (PACERONE) PO SCH ×2 (08:17→20:00)
[2021-09-19] MEDS: MIRALAX *UNIT DOSE* 17GM PACKET PO SCH (08:17)
[2021-09-19] MEDS: ALPRAZolam 0.25 MG TAB PO PRN (10:06)
[2021-09-19 13:01] LABS: C REACTIVE PROTEIN QUANTITATIV 1.16 MG/DL (0.00-0.30)
[2021-09-19 13:40] VITALS: BP 143/62
[2021-09-19 16:21] VITALS: BP 129/64
[2021-09-19 20:00] VITALS: BP 134/64
[2021-09-19] MEDS: SENNA 8.6 MG TAB (SENOKOT) PO SCH (20:00)
[2021-09-19 21:30] VITALS: BP 116/74
[2021-09-20] MEDS: SODIUM CHLORIDE 0.9% INJ 10 ML SYR IV SCH ×2 (05:04→17:47)
[2021-09-20 06:53] VITALS: BP 120/72
[2021-09-20 06:55] LABS: HEMATOCRIT 26.9 % (36.0-47.0); MEAN CORPUSCULAR HEMOGLOBIN 30.4 pg (27.0-33.0); MEAN CORPUSCULAR HGB CONC 33.5 g/dl (32.0-36.5); MEAN CORPUSCULAR VOLUME 90.9 fl (80.0-96.0); PLATELET COUNT, AUTOMATED 260 10^3/uL (150-450); RED BLOOD COUNT 2.96 10^6/uL (4.00-5.40); WHITE BLOOD COUNT 14.8 10^3/uL (4.0-10.0)
[2021-09-20 07:17] LABS: CALCIUM LEVEL 9.2 MG/DL (8.8-10.2); CREATININE FOR GFR 2.39 MG/DL (0.55-1.30); GLOMERULAR FILTRATION RATE 20.3 (>32); POTASSIUM SERUM 3.9 MEQ/L (3.5-5.1)
[2021-09-20] MEDS: SYMBICORT 160/4.5MCG INHALER 6GM INH SCH ×2 (07:48→20:05)
[2021-09-20] MEDS: OMEPRAZOLE 20MG CAP PO SCH (09:44)
[2021-09-20] MEDS: APIXABAN 2.5 MG TAB (ELIQUIS) PO SCH ×2 (09:44→21:17)
[2021-09-20] MEDS: AMIODARONE 200 MG TAB (PACERONE) PO SCH ×2 (09:45→21:17)
[2021-09-20] MEDS: CARVedilol 6.25 MG TAB PO SCH ×2 (09:45→21:18)
[2021-09-20] MEDS: allopurinoL 300 MG TAB PO SCH (09:45)
[2021-09-20] MEDS: ATORVASTATIN 20 MG TAB PO SCH (09:45)
[2021-09-20] MEDS: VITAMIN D 1,000 INTERNATIONAL UNITS TABLET PO SCH (09:45)
[2021-09-20] MEDS: DOXYCYCLINE HYCLATE 100MG TABLET PO SCH ×2 (09:46→21:17)
[2021-09-20] MEDS: CLOPIDOGREL 75 MG TAB PO SCH (09:46)
[2021-09-20] MEDS: DOCUSATE SODIUM 100MG CAPSULE PO SCH ×2 (09:46→21:17)
[2021-09-20] MEDS: CALCITRIOL 0.25 MCG CAP (S0169) PO SCH (09:46)
[2021-09-20] MEDS: MIRALAX *UNIT DOSE* 17GM PACKET PO SCH (09:46)
[2021-09-20] MEDS: HumaLOG INSULIN (NovoLOG) PER UNIT SC SCH ×3 (09:47→17:45)
[2021-09-20 11:05] VITALS: BP 152/61
[2021-09-20] MEDS ORDERED: SODIUM CHLORIDE 3% 500 ML IV SCH (14:55)
[2021-09-20 19:07] LABS: CALCIUM LEVEL 9.1 MG/DL (8.8-10.2); CREATININE FOR GFR 2.38 MG/DL (0.55-1.30); GLOMERULAR FILTRATION RATE 20.4 (>32); POTASSIUM SERUM 3.8 MEQ/L (3.5-5.1)
[2021-09-20] MEDS: RAMELTEON 8 MG TAB (ROZEREM) PO PRN (21:17)
[2021-09-20] MEDS: SENNA 8.6 MG TAB (SENOKOT) PO SCH (21:17)
[2021-09-20] MEDS: ACETAMINOPHEN TAB 650MG DOSE (2X325MG) PO PRN (21:18)
[2021-09-21 06:14] LABS: HEMATOCRIT 26.1 % (36.0-47.0); HEMOGLOBIN 8.7 g/dl (12.0-15.5); MEAN CORPUSCULAR HEMOGLOBIN 30.1 pg (27.0-33.0); MEAN CORPUSCULAR HGB CONC 33.3 g/dl (32.0-36.5); MEAN CORPUSCULAR VOLUME 90.3 fl (80.0-96.0); PLATELET COUNT, AUTOMATED 230 10^3/uL (150-450); RED BLOOD COUNT 2.89 10^6/uL (4.00-5.40); WHITE BLOOD COUNT 11.2 10^3/uL (4.0-10.0)
[2021-09-21 06:29] VITALS: BP 137/57
[2021-09-21 06:36] LABS: CREATININE FOR GFR 2.15 MG/DL (0.55-1.30); MAGNESIUM LEVEL 2.1 MG/DL (1.8-2.4); POTASSIUM SERUM 3.7 MEQ/L (3.5-5.1)
[2021-09-21] MEDS: SYMBICORT 160/4.5MCG INHALER 6GM INH SCH ×2 (08:11→19:15)
[2021-09-21] MEDS: LEVALBUTEROL 1.25 MG/0.5 ML CONCENTRATE NEB NEB PRN (08:15)
[2021-09-21] MEDS: DOCUSATE SODIUM 100MG CAPSULE PO SCH ×2 (08:30→22:00)
[2021-09-21] MEDS: HumaLOG INSULIN (NovoLOG) PER UNIT SC SCH ×3 (08:30→17:32)
[2021-09-21] MEDS: OMEPRAZOLE 20MG CAP PO SCH (08:30)
[2021-09-21] MEDS: APIXABAN 2.5 MG TAB (ELIQUIS) PO SCH ×2 (08:32→22:00)
[2021-09-21] MEDS: VITAMIN D 1,000 INTERNATIONAL UNITS TABLET PO SCH (08:32)
[2021-09-21] MEDS: allopurinoL 300 MG TAB PO SCH (08:32)
[2021-09-21] MEDS: ATORVASTATIN 20 MG TAB PO SCH (08:33)
[2021-09-21] MEDS: DOXYCYCLINE HYCLATE 100MG TABLET PO SCH ×2 (08:33→21:59)
[2021-09-21] MEDS: CARVedilol 6.25 MG TAB PO SCH ×2 (08:33→22:00)
[2021-09-21] MEDS: CALCITRIOL 0.25 MCG CAP (S0169) PO SCH (08:33)
[2021-09-21] MEDS: CLOPIDOGREL 75 MG TAB PO SCH (08:33)
[2021-09-21] MEDS: MIRALAX *UNIT DOSE* 17GM PACKET PO SCH (08:33)
[2021-09-21] MEDS: AMIODARONE 200 MG TAB (PACERONE) PO SCH ×2 (08:34→22:00)
[2021-09-21] MEDS ORDERED: FUROSEMIDE 100MG/10ML VIAL (J1940) IV ONE (10:35)
[2021-09-21 16:29] LABS: CALCIUM LEVEL 9.1 MG/DL (8.8-10.2); CREATININE FOR GFR 2.08 MG/DL (0.55-1.30); GLOMERULAR FILTRATION RATE 23.9 (>32); POTASSIUM SERUM 3.8 MEQ/L (3.5-5.1)
[2021-09-21] MEDS: SENNA 8.6 MG TAB (SENOKOT) PO SCH (22:00)
[2021-09-21] MEDS: RAMELTEON 8 MG TAB (ROZEREM) PO PRN (22:00)
[2021-09-21] MEDS: ACETAMINOPHEN TAB 650MG DOSE (2X325MG) PO PRN (22:01)
[2021-09-22] MEDS: CALCIUM CARBONATE 500 MG CHEW U/D PO PRN ×2 (01:19→06:44)
[2021-09-22 04:24] VITALS: BP 144/50
[2021-09-22 07:49] LABS: ALBUMIN 2.7 GM/DL (3.2-5.2); CALCIUM LEVEL 9.1 MG/DL (8.8-10.2); CREATININE FOR GFR 1.86 MG/DL (0.55-1.30); GLOMERULAR FILTRATION RATE 27.2 (>32); PHOSPHORUS LEVEL 3.6 MG/DL (2.5-4.9); POTASSIUM SERUM 3.9 MEQ/L (3.5-5.1)
[2021-09-22] MEDS: LEVALBUTEROL 1.25 MG/0.5 ML CONCENTRATE NEB NEB PRN (08:01)
[2021-09-22] MEDS: SYMBICORT 160/4.5MCG INHALER 6GM INH SCH ×2 (08:01→20:26)
[2021-09-22] MEDS: HumaLOG INSULIN (NovoLOG) PER UNIT SC SCH ×3 (09:10→16:41)
[2021-09-22] MEDS: DOCUSATE SODIUM 100MG CAPSULE PO SCH ×2 (09:16→21:20)
[2021-09-22] MEDS: MIRALAX *UNIT DOSE* 17GM PACKET PO SCH (09:17)
[2021-09-22] MEDS: AMIODARONE 200 MG TAB (PACERONE) PO SCH ×3 (09:17→21:23)
[2021-09-22] MEDS: ATORVASTATIN 20 MG TAB PO SCH (09:17)
[2021-09-22] MEDS: CLOPIDOGREL 75 MG TAB PO SCH (09:17)
[2021-09-22] MEDS: APIXABAN 2.5 MG TAB (ELIQUIS) PO SCH ×2 (09:17→21:20)
[2021-09-22] MEDS: CARVedilol 6.25 MG TAB PO SCH ×2 (09:17→21:23)
[2021-09-22] MEDS: allopurinoL 300 MG TAB PO SCH (09:18)
[2021-09-22] MEDS: CALCITRIOL 0.25 MCG CAP (S0169) PO SCH (09:18)
[2021-09-22] MEDS: VITAMIN D 1,000 INTERNATIONAL UNITS TABLET PO SCH (09:18)
[2021-09-22] MEDS: OMEPRAZOLE 20MG CAP PO SCH (09:18)
[2021-09-22] MEDS: DOXYCYCLINE HYCLATE 100MG TABLET PO SCH ×2 (09:18→21:19)
[2021-09-22] MEDS: PERCOCET 5MG/325MG TAB PO PRN (16:41)
[2021-09-22] MEDS: ALPRAZolam 0.25 MG TAB PO PRN (16:42)
[2021-09-22] MEDS: SENNA 8.6 MG TAB (SENOKOT) PO SCH (21:19)
[2021-09-22] MEDS: RAMELTEON 8 MG TAB (ROZEREM) PO PRN (21:19)
[2021-09-22] MEDS: ACETAMINOPHEN TAB 650MG DOSE (2X325MG) PO PRN (21:20)
[2021-09-23 06:00] VITALS: BP 106/67
[2021-09-23] MEDS ORDERED: MAGIC MOUTHWASH SUSPENSION BTL SS ONE (06:00)
[2021-09-23] MEDS ORDERED: LIDOCAINE VISCOUS 2% SOLN 15ML UDC SS ONE (06:00)
[2021-09-23 07:12] LABS: ALBUMIN 2.6 GM/DL (3.2-5.2); BILIRUBIN,TOTAL 0.3 MG/DL (0.2-1.0); CALCIUM LEVEL 9.7 MG/DL (8.8-10.2); CREATININE FOR GFR 1.74 MG/DL (0.55-1.30); GLOMERULAR FILTRATION RATE 29.3 (>32); TOTAL PROTEIN 5.7 GM/DL (6.4-8.2)
[2021-09-23] MEDS: SYMBICORT 160/4.5MCG INHALER 6GM INH SCH ×2 (07:46→20:47)
[2021-09-23] MEDS: DOXYCYCLINE HYCLATE 100MG TABLET PO SCH ×2 (08:00→21:25)
[2021-09-23] MEDS: HumaLOG INSULIN (NovoLOG) PER UNIT SC SCH ×3 (08:00→17:04)
[2021-09-23] MEDS: allopurinoL 300 MG TAB PO SCH (08:00)
[2021-09-23] MEDS: DOCUSATE SODIUM 100MG CAPSULE PO SCH ×2 (08:01→20:10)
[2021-09-23] MEDS: VITAMIN D 1,000 INTERNATIONAL UNITS TABLET PO SCH (08:01)
[2021-09-23] MEDS: ATORVASTATIN 20 MG TAB PO SCH (08:01)
[2021-09-23] MEDS: OMEPRAZOLE 20MG CAP PO SCH (08:01)
[2021-09-23] MEDS: APIXABAN 2.5 MG TAB (ELIQUIS) PO SCH ×2 (08:01→21:25)
[2021-09-23] MEDS: CLOPIDOGREL 75 MG TAB PO SCH (08:01)
[2021-09-23] MEDS: CALCITRIOL 0.25 MCG CAP (S0169) PO SCH (08:01)
[2021-09-23] MEDS: AMIODARONE 200 MG TAB (PACERONE) PO SCH ×3 (08:02→21:25)
[2021-09-23] MEDS: CARVedilol 6.25 MG TAB PO SCH ×2 (08:02→21:25)
[2021-09-23] MEDS: MIRALAX *UNIT DOSE* 17GM PACKET PO SCH (08:02)
[2021-09-23] MEDS: LEVALBUTEROL 1.25 MG/0.5 ML CONCENTRATE NEB NEB PRN (11:09)
[2021-09-23] MEDS: ALPRAZolam 0.25 MG TAB PO PRN (14:03)
[2021-09-23 20:10] VITALS: BP 135/54
[2021-09-23] MEDS: SENNA 8.6 MG TAB (SENOKOT) PO SCH (20:10)
[2021-09-23] MEDS ORDERED: MAGIC MOUTHWASH SUSPENSION BTL SSP PRN (20:10)
[2021-09-23] MEDS: ACETAMINOPHEN TAB 650MG DOSE (2X325MG) PO PRN (21:25)
[2021-09-23] MEDS: NYSTATIN 500,000 U/5 ML SUSP UDC PO SCH (21:25)
[2021-09-24 05:00] VITALS: BP 134/54
[2021-09-24] MEDS: CEPACOL LOZENGE PO PRN (05:14)
[2021-09-24 06:52] LABS: HEMATOCRIT 27.8 % (36.0-47.0); HEMOGLOBIN 8.9 g/dl (12.0-15.5); MEAN CORPUSCULAR HEMOGLOBIN 29.8 pg (27.0-33.0); PLATELET COUNT, AUTOMATED 227 10^3/uL (150-450); RED BLOOD COUNT 2.99 10^6/uL (4.00-5.40); WHITE BLOOD COUNT 10.7 10^3/uL (4.0-10.0)
[2021-09-24 07:20] LABS: ALBUMIN 2.7 GM/DL (3.2-5.2); CALCIUM LEVEL 9.6 MG/DL (8.8-10.2); CREATININE FOR GFR 1.51 MG/DL (0.55-1.30); GLOMERULAR FILTRATION RATE 34.5 (>32); POTASSIUM SERUM 4.5 MEQ/L (3.5-5.1)
[2021-09-24] MEDS: LEVALBUTEROL 1.25 MG/0.5 ML CONCENTRATE NEB NEB PRN (07:30)
[2021-09-24] MEDS: HumaLOG INSULIN (NovoLOG) PER UNIT SC SCH ×3 (07:30→17:58)
[2021-09-24] MEDS: SYMBICORT 160/4.5MCG INHALER 6GM INH SCH ×2 (07:30→19:49)
[2021-09-24] MEDS: APIXABAN 2.5 MG TAB (ELIQUIS) PO SCH ×2 (08:31→21:55)
[2021-09-24] MEDS: DOXYCYCLINE HYCLATE 100MG TABLET PO SCH (08:31)
[2021-09-24] MEDS: OMEPRAZOLE 20MG CAP PO SCH (08:31)
[2021-09-24] MEDS: AMIODARONE 200 MG TAB (PACERONE) PO SCH ×3 (08:31→21:58)
[2021-09-24] MEDS: CLOPIDOGREL 75 MG TAB PO SCH (08:31)
[2021-09-24] MEDS: ATORVASTATIN 20 MG TAB PO SCH (08:31)
[2021-09-24] MEDS: VITAMIN D 1,000 INTERNATIONAL UNITS TABLET PO SCH (08:31)
[2021-09-24] MEDS: allopurinoL 300 MG TAB PO SCH (08:31)
[2021-09-24] MEDS: MIRALAX *UNIT DOSE* 17GM PACKET PO SCH (08:31)
[2021-09-24] MEDS: DOCUSATE SODIUM 100MG CAPSULE PO SCH ×2 (08:31→21:00)
[2021-09-24] MEDS: CARVedilol 6.25 MG TAB PO SCH ×3 (08:38→21:58)
[2021-09-24] MEDS: NYSTATIN 500,000 U/5 ML SUSP UDC PO SCH ×4 (08:38→21:55)
[2021-09-24] MEDS: CALCITRIOL 0.25 MCG CAP (S0169) PO SCH (08:38)
[2021-09-24] MEDS: PERCOCET 5MG/325MG TAB PO PRN (10:15)
[2021-09-24] MEDS: ALPRAZolam 0.25 MG TAB PO PRN (11:19)
[2021-09-24] MEDS ORDERED: TORSEMIDE (DEMADEX) 50 MG PER 1/2 TAB PO ONE (12:00)
[2021-09-24] MEDS: SENNA 8.6 MG TAB (SENOKOT) PO SCH (21:00)
[2021-09-24] MEDS: RAMELTEON 8 MG TAB (ROZEREM) PO PRN (21:55)
[2021-09-25] MEDS: CEPACOL LOZENGE PO PRN (05:55)
[2021-09-25 06:00] VITALS: BP 137/92
[2021-09-25] MEDS: SYMBICORT 160/4.5MCG INHALER 6GM INH SCH ×2 (07:33→20:24)
[2021-09-25 07:51] LABS: HEMOGLOBIN 9.2 g/dl (12.0-15.5); MEAN CORPUSCULAR HEMOGLOBIN 30.7 pg (27.0-33.0); MEAN CORPUSCULAR HGB CONC 32.9 g/dl (32.0-36.5); MEAN CORPUSCULAR VOLUME 93.3 fl (80.0-96.0); PLATELET COUNT, AUTOMATED 225 10^3/uL (150-450); WHITE BLOOD COUNT 10.7 10^3/uL (4.0-10.0)
[2021-09-25 08:15] VITALS: BP 137/92
[2021-09-25] MEDS: HumaLOG INSULIN (NovoLOG) PER UNIT SC SCH ×3 (08:17→17:11)
[2021-09-25] MEDS: CLOPIDOGREL 75 MG TAB PO SCH (08:18)
[2021-09-25] MEDS: MIRALAX *UNIT DOSE* 17GM PACKET PO SCH (08:18)
[2021-09-25] MEDS: allopurinoL 300 MG TAB PO SCH (08:18)
[2021-09-25] MEDS: ATORVASTATIN 20 MG TAB PO SCH (08:18)
[2021-09-25] MEDS: CALCITRIOL 0.25 MCG CAP (S0169) PO SCH (08:18)
[2021-09-25] MEDS: AMIODARONE 200 MG TAB (PACERONE) PO SCH ×3 (08:18→21:49)
[2021-09-25] MEDS: VITAMIN D 1,000 INTERNATIONAL UNITS TABLET PO SCH (08:18)
[2021-09-25] MEDS: OMEPRAZOLE 20MG CAP PO SCH (08:18)
[2021-09-25] MEDS: DOCUSATE SODIUM 100MG CAPSULE PO SCH ×2 (08:24→21:00)
[2021-09-25] MEDS: APIXABAN 2.5 MG TAB (ELIQUIS) PO SCH ×2 (08:24→21:49)
[2021-09-25] MEDS: NYSTATIN 500,000 U/5 ML SUSP UDC PO SCH ×4 (08:24→21:53)
[2021-09-25] MEDS: CARVedilol 6.25 MG TAB PO SCH ×2 (08:24→21:52)
[2021-09-25] MEDS: TORSEMIDE 20 MG TAB PO SCH (08:28)
[2021-09-25 08:31] LABS: ALBUMIN 2.6 GM/DL (3.2-5.2); CALCIUM LEVEL 9.6 MG/DL (8.8-10.2); CREATININE FOR GFR 1.47 MG/DL (0.55-1.30); GLOMERULAR FILTRATION RATE 35.6 (>32); PHOSPHORUS LEVEL 3.6 MG/DL (2.5-4.9); POTASSIUM SERUM 4.6 MEQ/L (3.5-5.1)
[2021-09-25] MEDS: LEVALBUTEROL 1.25 MG/0.5 ML CONCENTRATE NEB NEB PRN (15:10)
[2021-09-25] MEDS: ALPRAZolam 0.25 MG TAB PO PRN (17:47)
[2021-09-25] MEDS: RAMELTEON 8 MG TAB (ROZEREM) PO PRN (21:49)
[2021-09-25] MEDS: PERCOCET 5MG/325MG TAB PO PRN (21:53)
[2021-09-26] MEDS: PERCOCET 5MG/325MG TAB PO PRN ×3 (02:27→20:20)
[2021-09-26 06:00] VITALS: BP 130/44
[2021-09-26] MEDS: SYMBICORT 160/4.5MCG INHALER 6GM INH SCH ×2 (07:25→17:48)
[2021-09-26] MEDS: HumaLOG INSULIN (NovoLOG) PER UNIT SC SCH ×3 (07:45→18:25)
[2021-09-26] MEDS: NYSTATIN 500,000 U/5 ML SUSP UDC PO SCH ×4 (07:45→20:20)
[2021-09-26] MEDS: TORSEMIDE 20 MG TAB PO SCH (07:46)
[2021-09-26] MEDS: CLOPIDOGREL 75 MG TAB PO SCH (07:46)
[2021-09-26] MEDS: AMIODARONE 200 MG TAB (PACERONE) PO SCH ×3 (07:46→20:19)
[2021-09-26] MEDS: allopurinoL 300 MG TAB PO SCH (07:46)
[2021-09-26] MEDS: CALCITRIOL 0.25 MCG CAP (S0169) PO SCH (07:46)
[2021-09-26] MEDS: VITAMIN D 1,000 INTERNATIONAL UNITS TABLET PO SCH (07:47)
[2021-09-26] MEDS: DOCUSATE SODIUM 100MG CAPSULE PO SCH ×2 (07:47→20:20)
[2021-09-26] MEDS: OMEPRAZOLE 20MG CAP PO SCH (07:47)
[2021-09-26] MEDS: APIXABAN 2.5 MG TAB (ELIQUIS) PO SCH ×2 (07:48→20:20)
[2021-09-26] MEDS: ATORVASTATIN 20 MG TAB PO SCH (07:48)
[2021-09-26] MEDS: CARVedilol 6.25 MG TAB PO SCH ×2 (07:51→20:20)
[2021-09-26 08:10] VITALS: BP 127/77
[2021-09-26] MEDS: CALCIUM CARBONATE 500 MG CHEW U/D PO PRN (15:56)
[2021-09-26] MEDS: RAMELTEON 8 MG TAB (ROZEREM) PO PRN (20:19)
[2021-09-27] MEDS: CALCIUM CARBONATE 500 MG CHEW U/D PO PRN (05:55)
[2021-09-27] MEDS: ALPRAZolam 0.25 MG TAB PO PRN ×2 (05:56→20:58)
[2021-09-27 06:00] VITALS: BP 113/63
[2021-09-27] MEDS: SYMBICORT 160/4.5MCG INHALER 6GM INH SCH ×2 (07:27→20:03)
[2021-09-27] MEDS: HumaLOG INSULIN (NovoLOG) PER UNIT SC SCH ×3 (07:30→17:30)
[2021-09-27 07:57] LABS: HEMATOCRIT 30.4 % (36.0-47.0); MEAN CORPUSCULAR HEMOGLOBIN 30.8 pg (27.0-33.0); MEAN CORPUSCULAR HGB CONC 32.9 g/dl (32.0-36.5); MEAN CORPUSCULAR VOLUME 93.5 fl (80.0-96.0); PLATELET COUNT, AUTOMATED 219 10^3/uL (150-450); RED BLOOD COUNT 3.25 10^6/uL (4.00-5.40); WHITE BLOOD COUNT 22.1 10^3/uL (4.0-10.0)
[2021-09-27 08:34] LABS: ALBUMIN 2.7 GM/DL (3.2-5.2); CALCIUM LEVEL 9.3 MG/DL (8.8-10.2); CREATININE FOR GFR 2.2 MG/DL (0.55-1.30); GLOMERULAR FILTRATION RATE 22.4 (>32); PHOSPHORUS LEVEL 5.8 MG/DL (2.5-4.9); POTASSIUM SERUM 4.4 MEQ/L (3.5-5.1)
[2021-09-27] MEDS ORDERED: DARBEPOETIN 100 MCG/0.5 ML *NON-DIALYSIS* SYRINGE (J0881) SC SCH (09:00)
[2021-09-27] MEDS ORDERED: SIMETHICONE 80MG CHEW TAB PO ONE (10:00)
[2021-09-27] MEDS: DOCUSATE SODIUM 100MG CAPSULE PO SCH ×2 (10:14→20:58)
[2021-09-27] MEDS: OMEPRAZOLE 20MG CAP PO SCH (10:14)
[2021-09-27] MEDS: TORSEMIDE 20 MG TAB PO SCH (10:16)
[2021-09-27] MEDS: CARVedilol 6.25 MG TAB PO SCH ×2 (10:16→20:51)
[2021-09-27] MEDS: CLOPIDOGREL 75 MG TAB PO SCH (10:16)
[2021-09-27] MEDS: NYSTATIN 500,000 U/5 ML SUSP UDC PO SCH ×4 (10:17→20:59)
[2021-09-27] MEDS: ATORVASTATIN 20 MG TAB PO SCH (10:17)
[2021-09-27] MEDS: CALCITRIOL 0.25 MCG CAP (S0169) PO SCH (10:17)
[2021-09-27] MEDS: allopurinoL 300 MG TAB PO SCH (10:17)
[2021-09-27] MEDS: VITAMIN D 1,000 INTERNATIONAL UNITS TABLET PO SCH (10:17)
[2021-09-27] MEDS: APIXABAN 2.5 MG TAB (ELIQUIS) PO SCH ×2 (10:17→20:58)
[2021-09-27] MEDS: AMIODARONE 200 MG TAB (PACERONE) PO SCH ×3 (10:17→20:59)
[2021-09-27] MEDS: cefTRIAXone SOD 2 GM in D5W MINI-BAG PLUS 50 ML IV SCH (13:14)
[2021-09-27] MEDS: metroNIDAZOLE 500 MG in IV 1 EA IV SCH ×2 (14:39→20:55)
[2021-09-27] MEDS ORDERED: MOM 30ML SUSPENSION UDC PO ONE (15:50)
[2021-09-27] MEDS ORDERED: BISACODYL 10 MG SUPP PR ONE (15:50)
[2021-09-27] MEDS: SIMETHICONE 80MG CHEW TAB PO SCH ×2 (16:11→20:58)
[2021-09-27] MEDS: PERCOCET 5MG/325MG TAB PO PRN (16:12)
[2021-09-27 19:05] VITALS: BP 116/61
[2021-09-27 21:00] VITALS: O2SAT 96
[2021-09-28] VITALS (9 sets, daily range): BP systolic 86–106; BP diastolic 49–56; O2SAT 98
[2021-09-28] MEDS: LEVALBUTEROL 1.25 MG/0.5 ML CONCENTRATE NEB NEB PRN ×2 (03:21→18:23)
[2021-09-28] MEDS: metroNIDAZOLE 500 MG in IV 1 EA IV SCH ×3 (04:32→20:20)
[2021-09-28] MEDS: HumaLOG INSULIN (NovoLOG) PER UNIT SC SCH ×3 (07:30→16:55)
[2021-09-28] MEDS: SYMBICORT 160/4.5MCG INHALER 6GM INH SCH ×2 (07:41→19:11)
[2021-09-28] MEDS ORDERED: FLEET ENEMA PR PRN (08:30)
[2021-09-28] MEDS: NYSTATIN 500,000 U/5 ML SUSP UDC PO SCH ×4 (08:54→20:18)
[2021-09-28] MEDS: OMEPRAZOLE 20MG CAP PO SCH (08:59)
[2021-09-28] MEDS: DOCUSATE SODIUM 100MG CAPSULE PO SCH ×2 (08:59→20:18)
[2021-09-28] MEDS: VITAMIN D 1,000 INTERNATIONAL UNITS TABLET PO SCH (08:59)
[2021-09-28] MEDS: CARVedilol 6.25 MG TAB PO SCH ×2 (08:59→20:21)
[2021-09-28] MEDS: CLOPIDOGREL 75 MG TAB PO SCH (09:00)
[2021-09-28] MEDS: allopurinoL 300 MG TAB PO SCH (09:00)
[2021-09-28] MEDS: ATORVASTATIN 20 MG TAB PO SCH (09:00)
[2021-09-28] MEDS: AMIODARONE 200 MG TAB (PACERONE) PO SCH ×3 (09:00→20:18)
[2021-09-28] MEDS: CALCITRIOL 0.25 MCG CAP (S0169) PO SCH (09:00)
[2021-09-28] MEDS: SIMETHICONE 80MG CHEW TAB PO SCH ×3 (09:00→20:18)
[2021-09-28] MEDS: APIXABAN 2.5 MG TAB (ELIQUIS) PO SCH ×2 (09:00→20:19)
[2021-09-28 10:04] LABS: HEMOGLOBIN 9.6 g/dl (12.0-15.5); MEAN CORPUSCULAR HEMOGLOBIN 30.5 pg (27.0-33.0); MEAN CORPUSCULAR HGB CONC 33.1 g/dl (32.0-36.5); MEAN CORPUSCULAR VOLUME 92.1 fl (80.0-96.0); PLATELET COUNT, AUTOMATED 165 10^3/uL (150-450); RED BLOOD COUNT 3.15 10^6/uL (4.00-5.40); WHITE BLOOD COUNT 28.9 10^3/uL (4.0-10.0)
[2021-09-28 10:29] LABS: ALBUMIN 2.4 GM/DL (3.2-5.2); BILIRUBIN,TOTAL 0.3 MG/DL (0.2-1.0); CALCIUM LEVEL 7.7 MG/DL (8.8-10.2); CREATININE FOR GFR 2.42 MG/DL (0.55-1.30); MAGNESIUM LEVEL 2.3 MG/DL (1.8-2.4); POTASSIUM SERUM 4.5 MEQ/L (3.5-5.1)
[2021-09-28] MEDS ORDERED: MAGNESIUM CITRATE 300 ML BTL PO ONE (12:00)
[2021-09-28] MEDS: cefTRIAXone SOD 2 GM in D5W MINI-BAG PLUS 50 ML IV SCH (12:29)
[2021-09-28] MEDS: NS 1,000 ML IV SCH ×2 (13:24→20:20)
[2021-09-28] MEDS: PERCOCET 5MG/325MG TAB PO PRN (13:26)
[2021-09-28] MEDS ORDERED: NS 500 ML IV ONE (16:00)
[2021-09-29] VITALS (7 sets, daily range): BP systolic 86–154; BP diastolic 42–65
[2021-09-29] MEDS: NS 1,000 ML IV SCH ×2 (05:21→16:31)
[2021-09-29] MEDS: metroNIDAZOLE 500 MG in IV 1 EA IV SCH ×2 (05:21→13:05)
[2021-09-29 05:36] LABS: HEMATOCRIT 26.4 % (36.0-47.0); HEMOGLOBIN 8.9 g/dl (12.0-15.5); MEAN CORPUSCULAR HEMOGLOBIN 30.8 pg (27.0-33.0); MEAN CORPUSCULAR HGB CONC 33.7 g/dl (32.0-36.5); MEAN CORPUSCULAR VOLUME 91.3 fl (80.0-96.0); PLATELET COUNT, AUTOMATED 150 10^3/uL (150-450); RED BLOOD COUNT 2.89 10^6/uL (4.00-5.40)
[2021-09-29 06:07] LABS: CALCIUM LEVEL 6.5 MG/DL (8.8-10.2); CREATININE FOR GFR 2.15 MG/DL (0.55-1.30)
[2021-09-29] MEDS: SYMBICORT 160/4.5MCG INHALER 6GM INH SCH (07:25)
[2021-09-29] MEDS: HumaLOG INSULIN (NovoLOG) PER UNIT SC SCH ×3 (07:30→17:30)
[2021-09-29] MEDS ORDERED: CALCIUM GLUCONATE 1,000 MG in D5W MINI-BAG PLUS 100 ML IV ONE (09:00)
[2021-09-29] MEDS: CARVedilol 6.25 MG TAB PO SCH (09:00)
[2021-09-29] MEDS: CALCITRIOL 0.25 MCG CAP (S0169) PO SCH (09:00)
[2021-09-29] MEDS: AMIODARONE 200 MG TAB (PACERONE) PO SCH ×2 (09:00→18:21)
[2021-09-29] MEDS: CLOPIDOGREL 75 MG TAB PO SCH (09:00)
[2021-09-29] MEDS: VITAMIN D 1,000 INTERNATIONAL UNITS TABLET PO SCH (09:00)
[2021-09-29] MEDS: allopurinoL 300 MG TAB PO SCH (09:00)
[2021-09-29] MEDS: PERCOCET 5MG/325MG TAB PO PRN (09:00)
[2021-09-29] MEDS: SIMETHICONE 80MG CHEW TAB PO SCH ×2 (09:01→16:00)
[2021-09-29] MEDS: OMEPRAZOLE 20MG CAP PO SCH (09:01)
[2021-09-29] MEDS: APIXABAN 2.5 MG TAB (ELIQUIS) PO SCH (09:01)
[2021-09-29] MEDS: NYSTATIN 500,000 U/5 ML SUSP UDC PO SCH ×3 (09:01→18:21)
[2021-09-29] MEDS: DOCUSATE SODIUM 100MG CAPSULE PO SCH (09:01)
[2021-09-29] MEDS: ATORVASTATIN 20 MG TAB PO SCH (09:01)
[2021-09-29] MEDS: cefTRIAXone SOD 2 GM in D5W MINI-BAG PLUS 50 ML IV SCH (13:05)
[2021-09-29] MEDS ORDERED: VANCOMYCIN HCL 1,000 MG, VIAL MATE ADAPTER 1 EACH in NS 250 ML IV ONE (18:00)
[2021-09-29] MEDS ORDERED: LORazepam 1 MG TAB PO PRN (18:15)
[2021-09-29] MEDS ORDERED: MORPHINE SULFATE ORAL SOLN 10 MG/5 ML UD SL PRN (18:15)
[2021-09-29] MEDS ORDERED: ACETAMINOPHEN 650 MG SUPP PR PRN (18:15)
[2021-09-29] MEDS ORDERED: ONDANSETRON 4MG/2ML VIAL IV PRN (18:15)
[2021-09-30] MEDS ORDERED: VANCOMYCIN HCL 1,000 MG, VIAL MATE ADAPTER 1 EACH in NS 250 ML IV SCH (06:00)
[2021-09-30] MEDS ORDERED: CALCITRIOL 0.25 MCG CAP (S0169) PO SCH (09:00)
[2021-09-30] MEDS ORDERED: MORP1SOL5 PO (15:25)
[2021-09-30] MEDS ORDERED: ATIV1TAB10 PO (15:25)
== END 2021-09-30 18:30 | disposition home or self-care (01) | DRG 242 ==
LOC: M ED 13:30 → M ED INP 18:09 → ENRESERV 20:25 → M MSPAV 21:58 → M PCU 09-05 06:00 → M MS5PR 09-19 21:20 → M PCU 09-28 15:10 → M MS5PR 09-29 20:15
PROVIDERS: ADMIT Internal Medicine; ATTEND Internal Medicine
PROC: 02HV33Z Insertion of Infusion Device into Superior Vena Cava, Percutaneous Approach (ICD-10-PCS; 2021-09-05)
PROC: 02HK3JZ Insertion of Pacemaker Lead into Right Ventricle, Percutaneous Approach (ICD-10-PCS; 2021-09-06)
PROC: 02H63JZ Insertion of Pacemaker Lead into Right Atrium, Percutaneous Approach (ICD-10-PCS; 2021-09-06)
PROC: 0JH606Z Insertion of Pacemaker, Dual Chamber into Chest Subcutaneous Tissue and Fascia, Open Approach (ICD-10-PCS; principal; 2021-09-06 14:00)
DX: I13.0 Hypertensive heart and chronic kidney disease with heart failure and stage 1 through stage 4 chronic kidney disease, or unspecified chronic kidney disease (principal); J18.9 Pneumonia, unspecified organism; I50.33 Acute on chronic diastolic (congestive) heart failure; A41.9 Sepsis, unspecified organism; K85.90 Acute pancreatitis without necrosis or infection, unspecified; I48.92 Unspecified atrial flutter; N17.9 Acute kidney failure, unspecified; N39.0 Urinary tract infection, site not specified; J98.11 Atelectasis; I47.2 Ventricular tachycardia; J44.0 Chronic obstructive pulmonary disease with (acute) lower respiratory infection; L97.229 Non-pressure chronic ulcer of left calf with unspecified severity; L97.329 Non-pressure chronic ulcer of left ankle with unspecified severity; L97.919 Non-pressure chronic ulcer of unspecified part of right lower leg with unspecified severity; E87.1 Hypo-osmolality and hyponatremia; E87.2 Acidosis; E87.3 Alkalosis; I24.8 Other forms of acute ischemic heart disease; I25.10 Atherosclerotic heart disease of native coronary artery without angina pectoris; Z66 Do not resuscitate; Z95.5 Presence of coronary angioplasty implant and graft; Z85.3 Personal history of malignant neoplasm of breast; Z92.3 Personal history of irradiation; R77.8 Other specified abnormalities of plasma proteins; E78.5 Hyperlipidemia, unspecified; Z79.01 Long term (current) use of anticoagulants; Z79.899 Other long term (current) drug therapy; Z88.0 Allergy status to penicillin; Z88.2 Allergy status to sulfonamides; Z88.5 Allergy status to narcotic agent; Z88.8 Allergy status to other drugs, medicaments and biological substances; Z20.822 Contact with and (suspected) exposure to COVID-19; N18.30 Chronic kidney disease, stage 3 unspecified; D63.1 Anemia in chronic kidney disease; E87.6 Hypokalemia; E66.9 Obesity, unspecified; E11.22 Type 2 diabetes mellitus with diabetic chronic kidney disease; L97.529 Non-pressure chronic ulcer of other part of left foot with unspecified severity; E11.621 Type 2 diabetes mellitus with foot ulcer; E11.622 Type 2 diabetes mellitus with other skin ulcer; I49.5 Sick sinus syndrome; I27.81 Cor pulmonale (chronic); I48.0 Paroxysmal atrial fibrillation; I42.9 Cardiomyopathy, unspecified; D72.829 Elevated white blood cell count, unspecified; F41.9 Anxiety disorder, unspecified; Z72.3 Lack of physical exercise; Z74.09 Other reduced mobility; Z51.5 Encounter for palliative care; I27.20 Pulmonary hypertension, unspecified; Z95.2 Presence of prosthetic heart valve